=== PATIENT | female | born 1935 | race Caucasian/White ===

== ENCOUNTER 2017-07-08 07:21 | Day surgery (SDC) | payer MEDICARE ==
[~2017-07-08 07:21] MED LIST: Bupivacaine 0.5% 50 ML MDV ONE; Lidocaine 1% with EPINEPHrine 1:100,000 50 ML MDV ONE; Midazolam 1 MG/ML 2 ML SDV ONE; Propofol 200 MG/20 ML SDV ONE; fentaNYL 100 MCG/2 ML SDV ONE
[2017-07-08] MEDS ORDERED: Dextrose 5%-Lactated Ringers 1,000 ML IV SCH (07:30)
[2017-07-08] MEDS ORDERED: ceFAZolin 1 GM in Premix Bag 1 BAG IV ONE (08:15)
[2017-07-08 11:07] VITALS: BP 146/77
--- NOTE | 2017-07-11 08:44 | OR ---
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 OPERATIVE PROCEDURE: Excisional biopsy of the left breast ([id number]). ANESTHESIA: Local plus IV sedation. INDICATION FOR PROCEDURE: This 81-year-old female is presenting with a palpable mass in the medial aspect of the left breast. Clinically, this is quite suspicious for being a malignancy. She had mammograms and other radiologic workup, which showed this lesion, but no additional abnormalities. Clinically, the mass appeared to be fairly close to the pectoral fascia and may in fact be fixed. The plan will be to proceed with an excisional biopsy. Potential risks including bleeding, infection, and likely need for additional treatment if malignancy is confirmed were all reviewed with the patient, and she wishes to proceed. DETAILS OF PROCEDURE: The patient was taken to the operating room and placed in a supine position. IV sedation was administered, after which the left breast and surrounding areas were prepped and draped. The area over the palpable mass was then anesthetized with 1% lidocaine mixed with Marcaine. A transversely-oriented incision was made and carried down through the skin and subcutaneous tissue. The lesion was then dissected free from the surrounding soft tissues. This appeared to be either fixed or very close to being , but not likely penetrating through it. This would indicate a need for likely excision of that area as well as some of the underlying musculature in that area at the time of a re-excision, such as mastectomy. At any rate, the mass measured around 2 to 2.5 cm. It was quite highly suggestive of a malignancy and it was sent for pathologic review. The deeper soft tissues were then approximated with some 3-0 and 4-0 Vicryl stitch, and the skin with a 4-0 Vicryl subcuticular stitch. Dressing was applied. We will see the patient back this Friday to discuss treatment options. Seun Paul MD /[id number]
== END 2017-07-08 11:35 | disposition home or self-care (01) ==
LOC: JP.SDS 07:21
PROVIDERS: ATTEND Surgery
DX: C50.812 Malignant neoplasm of overlapping sites of left female breast (principal); Z17.1 Estrogen receptor negative status [ER-]; I12.9 Hypertensive chronic kidney disease with stage 1 through stage 4 chronic kidney disease, or unspecified chronic kidney disease; E11.22 Type 2 diabetes mellitus with diabetic chronic kidney disease; N18.9 Chronic kidney disease, unspecified
CPT/HCPCS: 19120; 82962; J0690; J2250; J2704; J3010; J7042; 88305; 88341; 88342; 88360

== ENCOUNTER 2017-07-14 09:18 | Inpatient (IN) | payer MEDICARE ==
[~2017-07-14 09:18] MED LIST changes: -Bupivacaine 0.5% 50 ML MDV ONE; +HYDROmorphone/Normal Saline 15 MG/30 ML PCA IV PRN; -Lidocaine 1% with EPINEPHrine 1:100,000 50 ML MDV ONE; -Midazolam 1 MG/ML 2 ML SDV ONE; -Propofol 200 MG/20 ML SDV ONE; -fentaNYL 100 MCG/2 ML SDV ONE
[2017-07-14] MEDS ORDERED: Isosulfan Blue 5 ML SDV ONE (10:05)
[2017-07-14] MEDS: amLODIPine 10 MG Tab PO SCH ×2 (10:14→21:20)
[2017-07-14] MEDS ORDERED: ceFAZolin 1 GM in Premix Bag 1 BAG IV ONE (10:15)
[2017-07-14] MEDS: Dextrose 5%-Lactated Ringers 1,000 ML IV SCH ×2 (10:15→20:37)
[2017-07-14] MEDS ORDERED: fentaNYL 100 MCG/2 ML SDV ONE (10:48)
[2017-07-14] MEDS ORDERED: Propofol 200 MG/20 ML SDV ONE (10:48)
[2017-07-14] MEDS ORDERED: Midazolam 1 MG/ML 2 ML SDV ONE (10:48)
[2017-07-14] MEDS ORDERED: Ondansetron 4 MG/2 ML SDV ONE (10:50)
[2017-07-14] MEDS ORDERED: Rocuronium 50 MG/5 ML Vial ONE (10:50)
[2017-07-14] MEDS ORDERED: Dexamethasone 4 MG/ML SDV ONE (10:50)
[2017-07-14] MEDS ORDERED: Neostigmine Methylsulfate 1 MG/ML 5 ML Syringe ONE (10:50)
[2017-07-14] MEDS ORDERED: Glycopyrrolate 0.2 MG/ML 5 ML MDV ONE (10:50)
[2017-07-14] MEDS ORDERED: Succinylcholine 200 MG/10 ML MDV ONE (10:50)
[2017-07-14] MEDS ORDERED: fentaNYL 250 MCG/5 ML SDV ONE (10:54)
--- NOTE | 2017-07-14 11:00 | PCM.HP ---
H&P History of Present Illness - General Date of Service: 07/14/17 Admit Problem/Dx: Left Mastectomy Modified Radical with Sentinal Lymph Node Biopsies and Frozen Section Source of Information: Patient History Limitations: Reports: No Limitations Right Leg Pain Score (Numeric/FACES): 6 - Related Data Allergies/Adverse Reactions: Allergies Allergy/AdvReac Type Severity Reaction Status Date / Time No Known Allergies Allergy Verified 07/14/17 09:46 Home Medications: Home Meds Calcium Carbonate/Vitamin D3 [Calcium 600 + Vit D Tablet] 1 each PO DAILY [History] Insulin Glarg,Human.Rec.Analog [LantUS Solostar] 20 unit SQ BID 10/11/16 [ History] Lansoprazole [Prevacid] 30 mg PO DAILY 10/11/16 [History] Lovastatin 40 mg PO DAILY 10/11/16 [History] Metoprolol Tartrate 100 mg PO BID 10/11/16 [History] Multivitamin with Minerals [Multivitamins with Minerals] 1 each PO DAILY [History] amLODIPine Besylate [Amlodipine Besylate] 10 mg PO DAILY 10/11/16 [History] Insulin Aspart [Novolog] 5 - 10 unit SQ TIDAC 07/04/17 [History] Losartan Potassium 25 mg PO DAILY 07/04/17 [History] Docusate Sodium [Colace] 50 mg PO DAILY 07/08/17 [History] Psyllium with Sucrose [Metamucil] 1 each PO DAILY PRN 07/11/17 [History] Past Medical History HEENT History: Reports: Impaired Vision Cardiovascular History: Reports: High Cholesterol, Hypertension Gastrointestinal History: Reports: Colon Polyp, GERD Genitourinary History: Reports: Chronic Renal Insuffiency, Other (See Below) Other Genitourinary History: frequency Musculoskeletal History: Reports: None Endocrine/Metabolic History: Reports: Diabetes, Type II, IDDM Hematologic History: Reports: Blood Transfusion(s) Oncologic (Cancer) History: Reports: Other (See Below) Other Oncologic History: skin cancer on leg Dermatologic History: Reports: Other (See Below) Other Dermatologic History: skin cancer - Infectious Disease History Infectious Disease History: Reports: Chicken Pox, Measles, Mumps - Past Surgical History HEENT Surgical History: Reports: None Cardiovascular Surgical History: Reports: Coronary Artery Stent GI Surgical History: Reports: Appendectomy, Colonoscopy Female Surgical History: Reports: None Endocrine Surgical History: Reports: None Musculoskeletal Surgical History: Reports: Knee Replacement Dermatological Surgical History: Reports: Skin Biopsy Social & Family History - Family History Family Medical History: Noncontributory - Tobacco Use Smoking Status *Q: Never Smoker Second Hand Smoke Exposure: No - Caffeine Use Caffeine Use: Reports: Coffee, Tea - Recreational Drug Use Recreational Drug Use: No H&P Review of Systems - Review of Systems: Review Of Systems: ROS reveals no pertinent complaints other than HPI. Exam - Exam Exam: See Below - Vital Signs Vital Signs: Last Vital Signs Temp 97.9 F 07/14/17 10:07 Pulse 57 L 07/14/17 10:07 Resp 18 07/14/17 10:07 BP 149/73 H 07/14/17 10:14 Pulse Ox 97 07/14/17 10:07 Weight: 135 lb - Exam Quality Assessment: DVT Prophylaxis General: Alert, Oriented, Cooperative HEENT: PERRLA, Conjunctiva Clear Neck: Supple, Trachea Midline Lungs: Clear to Auscultation, Normal Respiratory Effort Cardiovascular: Regular Rate, Regular Rhythm GI/Abdominal Exam: Soft, Non-Tender (Female) Exam: Deferred Rectal (Female) Exam: Deferred Back Exam: Normal Inspection, Full Range of Motion Extremities: Normal Inspection, No Pedal Edema Skin: Warm, Dry, Intact Neurological: Cranial Nerves Intact Neuro Extensive - Mental Status: Alert, Oriented x3, Normal Mood/Affect Neuro Extensive - Motor, Sensory, Reflexes: CN II-XII Intact, Normal Gait, Normal Reflexes Psychiatric: Alert, Normal Affect, Normal Mood - Patient Data Lab Results Last 24 hrs: Laboratory Results - last 24 hr 07/14/17 07/14/17 Range/Units 09:33 09:33 WBC 8.7 (4.5-11.0) K/uL RBC 4.86 (3.30-5.50) M/uL Hgb 14.3 (12.0-15.0) g/dL Hct 43.9 (36.0-48.0) % MCV 90 (80-98) fL MCH 29 (27-31) pg MCHC 33 (32-36) % Plt Count 286 (150-400) K/uL Sodium 138 L (140-148) mmol/L Potassium 4.6 (3.6-5.2) mmol/L Chloride 102 (100-108) mmol/L Carbon Dioxide 28 (21-32) mmol/L Anion Gap 12.6 (5.0-14.0) mmol/L BUN 33 H (7-18) mg/dL Creatinine 1.4 H (0.6-1.0) mg/dL Est Cr Clr Drug Dosing 25.77 mL/min Estimated GFR (MDRD) 36 L (>60) Glucose 198 H (74-106) mg/dL Calcium 9.9 (8.5-10.1) mg/dL Phosphorus 3.2 (2.5-4.9) mg/dL Magnesium 2.0 (1.8-2.4) mg/dL Total Bilirubin 0.5 (0.2-1.0) mg/dL AST 19 (15-37) U/L ALT 32 (12-78) U/L Alkaline Phosphatase 88 (46-116) U/L NT-Pro-B Natriuret Pep 459 H (5-450) pg/mL Total Protein 8.2 (6.4-8.2) g/dL Albumin 3.6 (3.4-5.0) g/dL Globulin 4.6 H (2.3-3.5) g/dL Albumin/Globulin Ratio 0.8 L (1.2-2.2) Result Diagrams: 07/14/17 09:33 07/14/17 09:33 - Problem List (1) Left breast mass SNOMED Code(s): 83478908 ICD Code: N63.20 - UNSPECIFIED LUMP IN THE LEFT BREAST, UNSPECIFIED QUADRANT Status: Acute Current Visit: Yes Problem List Initiated/Reviewed/Updated: Yes Orders Last 24hrs: Active Orders 24 hr Category Date Time Status CA 27.29 Routine Lab 07/14/17 09:33 Received Dextrose 5%-Lactated Ringers 1,000 ml Med 07/14/17 10:00 Active IV ASDIRECTED HYDROmorphone/Normal Saline [Dilaudid [employer]HE[employer] 15 MG in NS Med 07/14/17 07:36 Active 30 ML] See Protocol IV ASDIRECTED PRN amLODIPine [Norvasc] Med 07/14/17 10:30 Active 10 mg PO BEDTIME SCD [Sequential Compression Device] [OM.PC] Routine Oth 07/14/17 09:30 Ordered Medication Orders Amlodipine Besylate (Norvasc) 10 mg PO BEDTIME [facility] Last Admin: 07/14/17 10:14 Dose: 10 mg Hydromorphone HCl (Dilaudid Medical Physics Teacher 15 Mg In Ns 30 Ml) 0 mg IV ASDIRECTED PRN; Protocol PRN Reason: Pain Dextrose/Lactated Ringer's (Dextrose 5%-Lactated Ringers) 1,000 mls @ 100 mls/ hr IV ASDIRECTED [facility] Last Admin: 07/14/17 10:15 Dose: 100 mls/hr Assessment/Plan Comment:: Left Breast Lump Plan: May proceed with Surgical Procedure. Patient cleared for General Anesthesia Desirae Hammond 07/14/2017
[2017-07-14] MEDS ORDERED: Insulin Aspart 100 Units/ML 3 ML Pen SUBCUT ONE (15:15)
[2017-07-14] MEDS ORDERED: Naloxone 0.4 MG/ML SDV IV PRN (15:41)
[2017-07-14] MEDS ORDERED: Glucose Gel 15 GM in 37.5 GM Tube PO PRN (15:45)
[2017-07-14] MEDS ORDERED: Glucagon,Human Recombinant 1 MG Vial IM PRN (15:45)
[2017-07-14] MEDS ORDERED: Insulin Aspart 100 Units/ML 3 ML Pen SUBCUT PRN (15:45)
[2017-07-14] MEDS ORDERED: 50% Dextrose in Water 50 ML Syringe IVPUSH PRN (15:45)
[2017-07-14] MEDS: Ondansetron 4 MG/2 ML SDV IVPUSH PRN ×2 (15:57→21:11)
[2017-07-14] MEDS: ceFAZolin 1 GM in Premix Bag 1 BAG IV SCH (20:39)
[2017-07-14] MEDS: Metoprolol Tartrate 50 MG Tab PO SCH (21:15)
[2017-07-14] MEDS: Mupirocin Oint 22 GM Tube TOP SCH (21:15)
[2017-07-14] MEDS ORDERED: amLODIPine 5 MG Tab ONE (21:22)
[2017-07-14] MEDS: Insulin Aspart 100 Units/ML 3 ML Pen SUBCUT PRN (22:20)
[2017-07-14] MEDS: Insulin Detemir 100 Units/ML 3 ML Pen SUBCUT SCH (22:20)
[2017-07-15] MEDS: Ondansetron 4 MG/2 ML SDV IVPUSH PRN ×2 (01:43→08:43)
[2017-07-15] MEDS: ceFAZolin 1 GM in Premix Bag 1 BAG IV SCH ×2 (03:28→11:13)
[2017-07-15] MEDS ORDERED: Insulin Aspart 100 Units/ML 3 ML Pen SUBCUT ONE (04:28)
[2017-07-15] MEDS ORDERED: Lactated Ringers 1,000 ML IV SCH ×2 (04:30→07:45)
--- NOTE | 2017-07-15 07:20 | PCM.PN ---
- General Info Date of Service: 07/15/17 Admission Dx/Problem (Free Text): Left Mastectomy Subjective Update: Patient is POD #1. Overnight she was experiencing extreme nausea that was not controlled with Odansetron. This am she was experiencing less nausea although state that she believes the nausea is being provoked from the pain medication. Functional Status: Reports: Pain Controlled - Review of Systems General: Reports: No Symptoms HEENT: Reports: No Symptoms Pulmonary: Reports: No Symptoms Cardiovascular: Reports: No Symptoms Gastrointestinal: Reports: No Symptoms Genitourinary: Reports: No Symptoms Musculoskeletal: Reports: No Symptoms Skin: Reports: No Symptoms Neurological: Reports: No Symptoms Psychiatric: Reports: No Symptoms (Review of systems is negative for pertanient negatives and positives) - Patient Data Vitals - Most Recent: Last Vital Signs Temp 96.9 F 07/15/17 01:30 Pulse 81 07/15/17 01:30 Resp 16 07/15/17 01:30 BP 157/58 H 07/15/17 01:30 Pulse Ox 91 L 07/15/17 01:30 Weight - Most Recent: 135 lb I&O - Last 24 Hours: Intake & Output 07/14/17 07/15/17 07/15/17 22:59 06:59 14:59 Intake Total 50 1315 Output Total 400 Balance 50 915 Lab Results Last 24 Hours: Laboratory Results - last 24 hr 07/14/17 07/14/17 07/14/17 Range/Units 09:33 09:33 09:33 WBC 8.7 (4.5-11.0) K/uL RBC 4.86 (3.30-5.50) M/uL Hgb 14.3 (12.0-15.0) g/dL Hct 43.9 (36.0-48.0) % MCV 90 (80-98) fL MCH 29 (27-31) pg MCHC 33 (32-36) % Plt Count 286 (150-400) K/uL Sodium 138 L (140-148) mmol/L Potassium 4.6 (3.6-5.2) mmol/L Chloride 102 (100-108) mmol/L Carbon Dioxide 28 (21-32) mmol/L Anion Gap 12.6 (5.0-14.0) mmol/L BUN 33 H (7-18) mg/dL Creatinine 1.4 H (0.6-1.0) mg/dL Est Cr Clr Drug Dosing 25.77 mL/min Estimated GFR (MDRD) 36 L (>60) Glucose 198 H (74-106) mg/dL Calcium 9.9 (8.5-10.1) mg/dL Phosphorus 3.2 (2.5-4.9) mg/dL Magnesium 2.0 (1.8-2.4) mg/dL Total Bilirubin 0.5 (0.2-1.0) mg/dL AST 19 (15-37) U/L ALT 32 (12-78) U/L Alkaline Phosphatase 88 (46-116) U/L NT-Pro-B Natriuret Pep 459 H (5-450) pg/mL Total Protein 8.2 (6.4-8.2) g/dL Albumin 3.6 (3.4-5.0) g/dL Globulin 4.6 H (2.3-3.5) g/dL Albumin/Globulin Ratio 0.8 L (1.2-2.2) CA 27-29 36.3 (0.0-38.6) U/mL Med Orders - Current: Current Medications Amlodipine Besylate (Norvasc) 10 mg PO BEDTIME [facility] Last Admin: 07/14/17 21:20 Dose: 10 mg Dextrose (Glutose 15) 15 gm PO ASDIRECTED PRN PRN Reason: HYPOGLYCEMIA Dextrose/Water (Dextrose 50% In Water) 50 ml IVPUSH ASDIRECTED PRN PRN Reason: HYPOGLYCEMIA Glucagon (Glucagen) 1 mg IM ASDIRECTED PRN PRN Reason: HYPOGLYCEMIA Hydromorphone HCl (Dilaudid Home Health Care Physician 15 Mg In Ns 30 Ml) 0 mg IV ASDIRECTED PRN; Protocol PRN Reason: Pain Last Admin: 07/14/17 12:27 Dose: 0.2 mg Dextrose/Lactated Ringer's (Dextrose 5%-Lactated Ringers) 1,000 mls @ 100 mls/ hr IV ASDIRECTED [facility] Last Admin: 07/14/17 20:37 Dose: 100 mls/hr Cefazolin Sodium/Dextrose 1 gm (/ Premix) 50 mls @ 100 mls/hr IV Q8H [facility] Stop: 07/15/17 12:29 Last Admin: 07/15/17 03:28 Dose: 100 mls/hr Lactated Ringer's (Ringers, Lactated) 1,000 mls @ 100 mls/hr IV ASDIRECTED [facility] Last Admin: 07/15/17 04:44 Dose: 100 mls/hr Insulin Aspart (Novolog) 0 unit SUBCUT ASDIRECTED PRN; Protocol PRN Reason: MEDIUM CORRECTIONAL DOSE Last Admin: 07/14/17 22:20 Dose: 8 units Insulin Detemir (Levemir) 20 unit SUBCUT BID@0800,2000 [facility] Last Admin: 07/14/17 22:20 Dose: 35 units Losartan Potassium (Cozaar) 25 mg PO DAILY [facility] Lovastatin (Mevacor) 40 mg PO DAILY [facility] Metoprolol Tartrate (Lopressor) 100 mg PO BID [facility] Last Admin: 07/14/17 21:15 Dose: 100 mg Mupirocin (Bactroban Oint) 1 gm TOP BID [facility] Last Admin: 07/14/17 21:15 Dose: 1 dose Naloxone HCl (Narcan) 0.1 mg IV ASDIRECTED PRN PRN Reason: decreased respiratory rate Ondansetron HCl (Zofran) 4 mg IVPUSH Q4H PRN PRN Reason: Nausea Last Admin: 07/15/17 01:43 Dose: 4 mg Pantoprazole Sodium (Protonix) 40 mg PO ACBREAKFAST [facility] Discontinued Medications Amlodipine Besylate (Norvasc) Confirm Administered Dose 10 mg .ROUTE .STK-MED ONE Stop: 07/14/17 21:23 Last Admin: 07/15/17 00:25 Dose: Not Given Dexamethasone (Dexamethasone) Confirm Administered Dose 4 mg .ROUTE .STK-MED ONE Stop: 07/14/17 10:51 Fentanyl (Sublimaze) Confirm Administered Dose 100 mcg .ROUTE .STK-MED ONE Stop: 07/14/17 10:49 Fentanyl (Sublimaze) Confirm Administered Dose 250 mcg .ROUTE .STK-MED ONE Stop: 07/14/17 10:55 Glycopyrrolate (Robinul) Confirm Administered Dose 1 mg .ROUTE .STK-MED ONE Stop: 07/14/17 10:51 Cefazolin Sodium/Dextrose 1 gm (/ Premix) 50 mls @ 100 mls/hr IV ONETIME ONE Stop: 07/14/17 10:44 Last Admin: 07/14/17 13:15 Dose: 100 mls/hr Insulin Aspart (Novolog) 3 unit SUBCUT ONETIME ONE Stop: 07/14/17 15:16 Last Admin: 07/14/17 15:07 Dose: 3 units Insulin Aspart (Novolog) 20 unit SUBCUT ONETIME ONE Stop: 07/15/17 04:29 Last Admin: 07/15/17 04:42 Dose: 20 units Isosulfan Blue (Lymphazurin 1%) Confirm Administered Dose 5 ml .ROUTE .STK-MED ONE Stop: 07/14/17 10:06 Last Admin: 07/14/17 13:30 Dose: 5 ml Midazolam HCl (Versed 1 Mg/Ml) Confirm Administered Dose 2 mg .ROUTE .STK-MED ONE Stop: 07/14/17 10:49 Neostigmine Methylsulfate (Neostigmine) Confirm Administered Dose 5 mg .ROUTE .STK-MED ONE Stop: 07/14/17 10:51 Ondansetron HCl (Zofran) Confirm Administered Dose 4 mg .ROUTE .STK-MED ONE Stop: 07/14/17 10:51 Propofol (Diprivan 20 Ml) Confirm Administered Dose 200 mg .ROUTE .STK-MED ONE Stop: 07/14/17 10:49 Rocuronium Ramsay (Zemuron) Confirm Administered Dose 50 mg .ROUTE .STK-MED ONE Stop: 07/14/17 10:51 Succinylcholine Chloride (Quelicin) Confirm Administered Dose 200 mg .ROUTE .STK -MED ONE Stop: 07/14/17 10:51 - Exam General: Alert, Oriented, Cooperative, No Acute Distress HEENT: Pupils Equal, Mucous Membr. Moist/[place] Neck: Supple Lungs: Normal Respiratory Effort Cardiovascular: Regular Rate, Regular Rhythm Extremities: Normal Inspection, Normal Range of Motion Skin: Warm, Dry, Intact Neurological: No New Focal Deficit Psy/Mental Status: Alert, Normal Affect, Normal Mood - Problem List Review Problem List Initiated/Reviewed/Updated: Yes - Assessment Assessment:: Status post left breast mastectomy modified radical with sentinel lymph node biopsies and frozen section - Plan Plan:: 1. Advance to regular diet 2. D/C Dilaudad 3. Start Tylenol prn for pain, if still experiencing pain start tramadol 4. Start Reglan for nausea prn if nausea uncontrolled with Odensetron 5. Reevaluate prn or in am
[2017-07-15] MEDS: Pantoprazole 40 MG Tab.CR PO SCH (07:38)
[2017-07-15] MEDS ORDERED: Metoclopramide 10 MG/2 ML SDV IVPUSH PRN (07:38)
[2017-07-15] MEDS: Insulin Detemir 100 Units/ML 3 ML Pen SUBCUT SCH ×2 (08:38→21:55)
[2017-07-15] MEDS: traMADol 50 MG Tab PO PRN ×2 (08:50→14:34)
[2017-07-15] MEDS: Acetaminophen 325 MG Tab PO PRN ×3 (08:51→18:49)
[2017-07-15] MEDS: Mupirocin Oint 22 GM Tube TOP SCH ×2 (09:37→21:53)
[2017-07-15] MEDS: Metoprolol Tartrate 50 MG Tab PO SCH ×2 (09:38→21:59)
[2017-07-15] MEDS: Docusate Sodium 100 MG Cap PO SCH ×2 (09:38→21:54)
[2017-07-15] MEDS: Losartan 50 MG Tab PO SCH (09:39)
[2017-07-15] MEDS: Insulin Aspart 100 Units/ML 3 ML Pen SUBCUT PRN ×3 (12:58→21:54)
[2017-07-15] MEDS ORDERED: Calcium Carbonate 500 MG Tab.Chew PO PRN (21:42)
[2017-07-15] MEDS: amLODIPine 10 MG Tab PO SCH (21:58)
[2017-07-16] MEDS: traMADol 50 MG Tab PO PRN (07:37)
[2017-07-16] MEDS: Pantoprazole 40 MG Tab.CR PO SCH (07:37)
[2017-07-16] MEDS: Acetaminophen 325 MG Tab PO PRN (07:38)
[2017-07-16] MEDS: Insulin Detemir 100 Units/ML 3 ML Pen SUBCUT SCH (07:39)
[2017-07-16 07:44] VITALS: BP 157/51
--- NOTE | 2017-07-16 08:12 | PCM.DCSUM1 ---
Discharge Summary - Hospital Course Brief History: Philipp is a 81 year old white, well nourished, well groomed female. She has a history of HTN, chronic renal insufficiency and Type 2 DM. - Discharge Data Discharge Date: 07/16/17 Discharge Disposition: Home, Self-Care 01 Condition: Good - Patient Summary/Data Operative Procedure(s) Performed: Left modified radical masectomy and setinal lymph node biopsy. Complications: No Complications. Consults: Consultations 07/14/17 15:38 Respiratory Care Assess and Treatment [CONS] Routine Comment: Physician Instructions: 07/16/17 08:09 Consult to Case Management [CONS] Routine Comment: Physician Instructions: Home Health Care Quantity: 07/16/17 09:00 PT Evaluation and Treatment [CONS] Routine Please Evaluate and Treat. PT Reason for Consult: Other (Type Response) Pending Discharge: Yes Discharge Disposition: Home w Home Health Special Instructions: Post mastectomy This query below is only for informational purposes and is not editable. Admission Diagnosis/Problem: Carcinoma of breast Hospital Course: Patient had a left breast mass that was removed and biopsied. The mass came back as cancerous and a left breast modified radical mastectomy on 07/14/2017. On POD #1 she was experiencing significant nausea and had difficulty keep down liquids. In the morning on POD #1 her pain medication was stopped and she was placed on Tylenol and Tramadol prn to try and help control the nausea. She was also changed to a full diet to try and improve the nausea. POD #2 the wound was checked and the patient was up and ambulating. We discussed possible home health care to help with showering and wound maintenance. Nursing staff helped to teach both the patient and her how to clean, drain, measure and record drain output. - Patient Instructions Diet: Heart Healthy Diet, Drink 8-10+ Glasses/Day Activity: As Tolerated, No Lifting Over 10 Pounds (for 6 weeks ) Showering/Bathing: May Shower Wound/Incision Care: Keep Operative Site/Wound Site Clean and Dry (Clean, Drain , Measure and Record daily. ) Notify Provider of: Fever, Increased Pain, Swelling and Redness, Nausea and/or Vomiting Other/Special Instructions: Use incentive inspirometer 10 times every hour while awake for 1 week while at home. - Discharge Plan Prescriptions/Med Rec: traMADol [Ultram] 50 mg PO Q6H PRN #30 tablet PRN Reason: PAIN Home Medications: Home Meds Calcium Carbonate/Vitamin D3 [Calcium 600 + Vit D Tablet] 1 each PO DAILY [History] Insulin Glarg,Human.Rec.Analog [Lantus Solostar] 20 unit SQ BID 10/11/16 [ History] Lansoprazole [Prevacid] 30 mg PO DAILY 10/11/16 [History] Lovastatin 40 mg PO DAILY 10/11/16 [History] Metoprolol Tartrate 100 mg PO BID 10/11/16 [History] Multivitamin with Minerals [Multivitamins with Minerals] 1 each PO DAILY [History] amLODIPine Besylate [Amlodipine Besylate] 10 mg PO DAILY 10/11/16 [History] Insulin Aspart [Novolog Flexpen] 5 - 10 unit SQ TIDAC 07/04/17 [History] Losartan Potassium 25 mg PO DAILY 07/04/17 [History] Docusate Sodium [Colace] 50 mg PO DAILY 07/08/17 [History] Psyllium with Sucrose [Metamucil] 1 each PO DAILY PRN 07/11/17 [History] Acetaminophen [Tylenol] 650 mg PO Q4H PRN tablet 07/16/17 [Rx] Mupirocin Oint [Bactroban Oint] 1 gm TOP BID tube 07/16/17 [Rx] traMADol [Ultram] 50 mg PO Q6H PRN #30 tablet 07/16/17 [Rx] Referrals: Seun Paul MD [Physician] - 07/23/17 9:00 am - Discharge Summary/Plan Comment DC Time >30 min.: Yes Discharge Summary/Plan Comment: Plan to discharge home in the care of her and possible at home care. Follow up with Medical Oncology Friday of next week 07/23/2017 - General Info Date of Service: 07/16/17 Admission Dx/Problem (Free Text: Left Breast Modified Radical Mastectomy with [place] lymph node biopsy Subjective Update: Patient is POD #2. Her nausea has improved since the discontinuation of the pain medication and the starting of the Tylenol and Tramadol prn. Her pain is controlled and we will be planning on discharging her today. She is being discharged home in the care of her and is possibly interested in at home care for the next few weeks. She stated that her insurance will most likely cover this and this is something she would like to look into for extra help. Functional Status: Reports: Pain Controlled, Tolerating Diet, Ambulating, Urinating, Incentive Spirometry (Should be using 10 times every hour while awake throughout the day and night.) - Review of Systems General: Reports: No Symptoms HEENT: Reports: No Symptoms Pulmonary: Reports: No Symptoms Cardiovascular: Reports: No Symptoms Gastrointestinal: Reports: No Symptoms Genitourinary: Reports: No Symptoms Musculoskeletal: Reports: No Symptoms Skin: Reports: No Symptoms Neurological: Reports: No Symptoms Psychiatric: Reports: No Symptoms Systems Review Comment: Remainder of ROS is negative for any pertinent positives or negatives. - Patient Data Vitals - Most Recent: Last Vital Signs Temp 97.5 F 07/16/17 07:41 Pulse 60 07/16/17 07:41 Resp 16 07/16/17 07:41 BP 157/51 H 07/16/17 07:41 Pulse Ox 90 L 07/16/17 07:49 Weight - Most Recent: 135 lb I&O - Last 24 hours: Intake & Output 07/15/17 07/16/17 07/16/17 22:59 06:59 14:59 Intake Total 1314 Output Total 213 Balance 1101 Med Orders - Current: Current Medications Acetaminophen (Tylenol) 650 mg PO Q4H PRN PRN Reason: PAIN Last Admin: 07/16/17 07:38 Dose: 650 mg Amlodipine Besylate (Norvasc) 10 mg PO BEDTIME [facility] Last Admin: 07/15/17 21:58 Dose: 10 mg Calcium Carbonate/Glycine (Tums) 1,000 mg PO Q2H PRN PRN Reason: Indigestion Last Admin: 07/15/17 22:06 Dose: 1,000 mg Dextrose (Glutose 15) 15 gm PO ASDIRECTED PRN PRN Reason: HYPOGLYCEMIA Dextrose/Water (Dextrose 50% In Water) 50 ml IVPUSH ASDIRECTED PRN PRN Reason: HYPOGLYCEMIA Docusate Sodium (Colace) 100 mg PO BID [facility] Last Admin: 07/15/17 21:54 Dose: 100 mg Glucagon (Glucagen) 1 mg IM ASDIRECTED PRN PRN Reason: HYPOGLYCEMIA Lactated Ringer's (Ringers, Lactated) 1,000 mls @ 80 mls/hr IV ASDIRECTED [facility] Last Admin: 07/15/17 16:50 Dose: 80 mls/hr Insulin Aspart (Novolog) 0 unit SUBCUT ASDIRECTED PRN; Protocol PRN Reason: MEDIUM CORRECTIONAL DOSE Last Admin: 07/15/17 21:54 Dose: 3 units Insulin Detemir (Levemir) 20 unit SUBCUT BID@0800,2000 [facility] Last Admin: 07/16/17 07:39 Dose: Not Given Losartan Potassium (Cozaar) 25 mg PO DAILY [facility] Last Admin: 07/15/17 09:39 Dose: 25 mg Lovastatin (Mevacor) 40 mg PO DAILY [facility] Last Admin: 07/15/17 09:39 Dose: 40 mg Metoclopramide HCl (Reglan) 10 mg IVPUSH Q6H PRN PRN Reason: NAUSEA Last Admin: 07/15/17 11:06 Dose: 10 mg Metoprolol Tartrate (Lopressor) 100 mg PO BID [facility] Last Admin: 07/15/17 21:59 Dose: 100 mg Mupirocin (Bactroban Oint) 1 gm TOP BID [facility] Last Admin: 07/15/17 21:53 Dose: 1 applic Naloxone HCl (Narcan) 0.1 mg IV ASDIRECTED PRN PRN Reason: decreased respiratory rate Ondansetron HCl (Zofran) 4 mg IVPUSH Q4H PRN PRN Reason: Nausea Last Admin: 07/15/17 08:43 Dose: 4 mg Pantoprazole Sodium (Protonix) 40 mg PO ACBREAKFAST [facility] Last Admin: 07/16/17 07:37 Dose: 40 mg Tramadol HCl (Ultram) 50 mg PO Q6H PRN PRN Reason: PAIN Last Admin: 07/16/17 07:37 Dose: 50 mg Discontinued Medications Amlodipine Besylate (Norvasc) Confirm Administered Dose 10 mg .ROUTE .STK-MED ONE Stop: 07/14/17 21:23 Last Admin: 07/15/17 00:25 Dose: Not Given Dexamethasone (Dexamethasone) Confirm Administered Dose 4 mg .ROUTE .STK-MED ONE Stop: 07/14/17 10:51 Fentanyl (Sublimaze) Confirm Administered Dose 100 mcg .ROUTE .STK-MED ONE Stop: 07/14/17 10:49 Fentanyl (Sublimaze) Confirm Administered Dose 250 mcg .ROUTE .STK-MED ONE Stop: 07/14/17 10:55 Glycopyrrolate (Robinul) Confirm Administered Dose 1 mg .ROUTE .STK-MED ONE Stop: 07/14/17 10:51 Hydromorphone HCl (Dilaudid [employer] 15 Mg In Ns 30 Ml) 0 mg IV ASDIRECTED PRN; Protocol PRN Reason: Pain Last Admin: 07/14/17 12:27 Dose: 0.2 mg Cefazolin Sodium/Dextrose 1 gm (/ Premix) 50 mls @ 100 mls/hr IV ONETIME ONE Stop: 07/14/17 10:44 Last Admin: 07/14/17 13:15 Dose: 100 mls/hr Dextrose/Lactated Ringer's (Dextrose 5%-Lactated Ringers) 1,000 mls @ 100 mls/ hr IV ASDIRECTED [facility] Last Admin: 07/14/17 20:37 Dose: 100 mls/hr Cefazolin Sodium/Dextrose 1 gm (/ Premix) 50 mls @ 100 mls/hr IV Q8H NAA Stop: 07/15/17 12:29 Last Admin: 07/15/17 11:13 Dose: 100 mls/hr Lactated Ringer's (Ringers, Lactated) 1,000 mls @ 100 mls/hr IV ASDIRECTED [facility] Last Admin: 07/15/17 04:44 Dose: 100 mls/hr Insulin Aspart (Novolog) 3 unit SUBCUT ONETIME ONE Stop: 07/14/17 15:16 Last Admin: 07/14/17 15:07 Dose: 3 units Insulin Aspart (Novolog) 20 unit SUBCUT ONETIME ONE Stop: 07/15/17 04:29 Last Admin: 07/15/17 04:42 Dose: 20 units Isosulfan Blue (Lymphazurin 1%) Confirm Administered Dose 5 ml .ROUTE .STK-MED ONE Stop: 07/14/17 10:06 Last Admin: 07/14/17 13:30 Dose: 5 ml Midazolam HCl (Versed 1 Mg/Ml) Confirm Administered Dose 2 mg .ROUTE .STK-MED ONE Stop: 07/14/17 10:49 Neostigmine Methylsulfate (Neostigmine) Confirm Administered Dose 5 mg .ROUTE .STK-MED ONE Stop: 07/14/17 10:51 Ondansetron HCl (Zofran) Confirm Administered Dose 4 mg .ROUTE .STK-MED ONE Stop: 07/14/17 10:51 Propofol (Diprivan 20 Ml) Confirm Administered Dose 200 mg .ROUTE .STK-MED ONE Stop: 07/14/17 10:49 Rocuronium [place] (Zemuron) Confirm Administered Dose 50 mg .ROUTE .STK-MED ONE Stop: 07/14/17 10:51 Succinylcholine Chloride (Quelicin) Confirm Administered Dose 200 mg .ROUTE .STK -MED ONE Stop: 07/14/17 10:51 - Exam General: Reports: Alert, Oriented, Cooperative, No Acute Distress HEENT: Reports: Pupils Equal, Mucous Membr. Moist/[place] Neck: Reports: Supple Lungs: Reports: Clear to Auscultation, Normal Respiratory Effort Cardiovascular: Reports: Regular Rate, Regular Rhythm Extremities: Normal Range of Motion Skin: Reports: Warm, Dry, Intact Wound/Incisions: Reports: Healing Well, Dressing Dry and Intact, Drainage ( serosanguanous ) Neurological: Reports: No New Focal Deficit, Normal Speech Psy/Mental Status: Reports: Alert, Normal Affect, Normal Mood
[2017-07-16] MEDS: Docusate Sodium 100 MG Cap PO SCH (08:20)
[2017-07-16] MEDS: Mupirocin Oint 22 GM Tube TOP SCH (08:20)
[2017-07-16] MEDS: Losartan 50 MG Tab PO SCH (08:21)
[2017-07-16] MEDS: Metoprolol Tartrate 50 MG Tab PO SCH (08:23)
--- NOTE | 2017-07-16 10:07 | PN ---
DATE OF SERVICE: 07/15/2017 The patient has been afebrile with stable vital signs. She had quite a bit of nausea overnight that appears to be resolving. It is hard to know what exactly is behind that, may be the Dilaudid, but also could be anesthetic agents and such. We will give her a regular diet today and then go with Tylenol and/or tramadol for pain orally. Her blood sugar has been fairly high, but I think it will come down today. We will switch her IV to plain LR to 80 mL an hour, and resume her 20 mg b.i.d. along with NovoLog coverage. Seun Paul MD /[id number]
--- NOTE | 2017-07-16 15:32 | OR ---
DATE OF PROCEDURE: 07/14/2017 PREOPERATIVE DIAGNOSIS: Carcinoma of left breast. POSTOPERATIVE DIAGNOSIS: Carcinoma of left breast. OPERATIVE PROCEDURES: 1. Left modified radical mastectomy with sentinel lymph node biopsy (30237). 2. Injection procedure for identification of sentinel lymph nodes (52141). ANESTHESIA: General. ASSISTANTS: 1. Desirae Betancourt PA-C. 2. DAVIS Diana. 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 After preoperative evaluation and discussion, she wished to proceed with a mastectomy with sentinel lymph node biopsy and full axillary dissection if the sentinel nodes were noted to contain metastatic tumor. Potential risks of the procedure including bleeding, infection, local, or distant tumor recurrence as well as possibility of cardiopulmonary, septic, or hemorrhagic complications leading to were discussed, and the patient wishes to proceed. DETAILS OF PROCEDURE: The patient was taken to the operating room and placed in a supine position. After general endotracheal anesthesia was induced, 3 mL of isosulfan blue dye were injected adjacent to the biopsy site in the subdermal space. Breast was then massaged generally and the left breast, axilla, and surrounding areas were prepped and draped. A transversely-oriented elliptical incision encompassing the nipple-areolar complex and widely away from the biopsy site was made and carried down through the skin and subcutaneous tissue. Subcutaneous flaps were then raised superiorly, inferiorly, laterally, and medially to the usual extent. The breast was then reflected off the chest wall. At the biopsy site, there was tumor more or less immediately adjacent to the pectoralis major fascia. Given this underlying the biopsy site the pectoralis major muscle was excised, but the remainder of the muscle away from that site was left in place and the fascia was then reflected off the chest wall to the remaining extent and delivered from the field. The lymphatics extending into the axilla were then traced out and a group of nodes was noted to contain the dye. These were excised using electrocautery. A single bleeding point was suture ligated with a 3-0 Vicryl stitch and the specimen delivered to the pathologist. The pathologist did not see any clearly evident metastatic disease. There was a tiny area of focus that was most likely just a but might continue micrometastasis, but given the findings, we decided not to proceed with any further axillary dissection. The incision was then irrigated with water and 2 Damien-Montoya drains were placed through stab wounds inferior to the main incision. Incision was then closed with some 3-0 Vicryl stitch deep and sherman for the skin. The drains affixed with some 3-0 Vicryl stitch as well. The patient was taken to the recovery room in satisfactory condition. There were no evident complications. Physician assistant quality manager, Desirae Betancourt, played an essential role in assisting in this case, helping to position the patient, retract structures as needed, as well as suturing and cutting sutures when indicated. Her presence improved patient's safety and decreased the operative time. Seun Paul MD /[id number]
== END 2017-07-16 10:05 | disposition home or self-care (01) | DRG 581 ==
LOC: JP.MS 09:18 → JP.SDS 09:18 → EDSTATUS 11:00 → JP.2SS 14:50
PROVIDERS: ADMIT Surgery; ATTEND Surgery
PROC: 0HTU0ZZ Resection of Left Breast, Open Approach (ICD-10-PCS; principal; 2017-07-14)
PROC: 07B60ZX Excision of Left Axillary Lymphatic, Open Approach, Diagnostic (ICD-10-PCS; 2017-07-14)
PROC: 0KBJ0ZZ Excision of Left Thorax Muscle, Open Approach (ICD-10-PCS; 2017-07-14)
DX: C50.912 Malignant neoplasm of unspecified site of left female breast (principal); Z17.1 Estrogen receptor negative status [ER-]; I12.9 Hypertensive chronic kidney disease with stage 1 through stage 4 chronic kidney disease, or unspecified chronic kidney disease; E11.22 Type 2 diabetes mellitus with diabetic chronic kidney disease; N18.9 Chronic kidney disease, unspecified; Z79.4 Long term (current) use of insulin; Z95.5 Presence of coronary angioplasty implant and graft; K21.9 Gastro-esophageal reflux disease without esophagitis; Z85.828 Personal history of other malignant neoplasm of skin; H54.7 Unspecified visual loss; Z96.659 Presence of unspecified artificial knee joint
CPT/HCPCS: 36415; 80053; 82962; 83735; 83880; 84100; 85027; 88307; 88331; 88332; 88342; 88360; 94762; 97161-GP; A9270-GY; J0330; J0690; J1100; J1170; J2250; J2405; J2704; J2710; J2765; J3010; J7042; J7120; Q9968

== ENCOUNTER 2017-07-19 04:46 | Emergency (ER) | payer MEDICARE ==
[2017-07-19 05:06] VITALS: BP 172/59
--- NOTE | 2017-07-19 05:43 | EDM.PDOC ---
ED HPI GENERAL MEDICAL PROBLEM - General Chief Complaint: Abdominal Pain Stated Complaint: NO BM 6 DAYS Time Seen by Provider: 07/19/17 05:20 Source of Information: Reports: Patient, Family History Limitations: Reports: No Limitations - History of Present Illness INITIAL COMMENTS - FREE TEXT/NARRATIVE: 81-year-old female had a mastectomy on Friday, discharged on Friday and is in the emergency room this morning because she has not had a bowel movement. She has intermittent abdominal fullness and pain and feels she needs to have a bowel movement but can't. She has chronic mild constipation but with the pain medication she's been taking it's been much worse. Intermittent nausea and mild vomiting as well. Onset: Gradual Severity: Moderate Associated Symptoms: Reports: Nausea/Vomiting. Denies: Chest Pain, Fever/Chills , Shortness of Breath Lower Abdomen Pain Score (Numeric/FACES): 9 - Related Data Allergies Allergy/AdvReac Type Severity Reaction Status Date / Time No Known Allergies Allergy Verified 07/19/17 05:11 Home Meds: Home Meds Calcium Carbonate/Vitamin D3 [Calcium 600 + Vit D Tablet] 1 each PO DAILY [History] Insulin Glarg,Human.Rec.Analog [Lantus Solostar] 20 unit SQ BID 10/11/16 [ History] Lansoprazole [Prevacid] 30 mg PO DAILY 10/11/16 [History] Lovastatin 40 mg PO DAILY 10/11/16 [History] Metoprolol Tartrate 100 mg PO BID 10/11/16 [History] Multivitamin with Minerals [Multivitamins with Minerals] 1 each PO DAILY [History] amLODIPine Besylate [Amlodipine Besylate] 10 mg PO DAILY 10/11/16 [History] Insulin Aspart [Novolog Flexpen] 5 - 10 unit SQ TIDAC 07/04/17 [History] Losartan Potassium 25 mg PO DAILY 07/04/17 [History] Docusate Sodium [Colace] 50 mg PO DAILY 07/08/17 [History] Psyllium with Sucrose [Metamucil] 1 each PO DAILY PRN 07/11/17 [History] Acetaminophen [Tylenol] 650 mg PO Q4H PRN tablet 07/16/17 [Rx] Mupirocin Oint [Bactroban Oint] 1 gm TOP BID tube 07/16/17 [Rx] traMADol [Ultram] 50 mg PO Q6H PRN #30 tablet 07/16/17 [Rx] Hydrocodone/Acetaminophen [Hydrocodon-Acetaminophen 5-325] 1 tab PO TID PRN 10/28 [History] Past Medical History HEENT History: Reports: Impaired Vision Cardiovascular History: Reports: CAD, High Cholesterol, Hypertension, Stents Gastrointestinal History: Reports: Cholelithiasis, Colon Polyp, GERD Genitourinary History: Reports: Chronic Renal Insuffiency, Other (See Below) Other Genitourinary History: frequency Musculoskeletal History: Reports: None Endocrine/Metabolic History: Reports: Diabetes, Type II, IDDM Hematologic History: Reports: Blood Transfusion(s) Oncologic (Cancer) History: Reports: Other (See Below) Other Oncologic History: skin cancer on leg Dermatologic History: Reports: Other (See Below) Other Dermatologic History: skin cancer - Infectious Disease History Infectious Disease History: Reports: Chicken Pox, Measles, Mumps - Past Surgical History Cardiovascular Surgical History: Reports: Coronary Artery Stent GI Surgical History: Reports: Appendectomy, Cholecystectomy, Colonoscopy Female Surgical History: Reports: Mastectomy Musculoskeletal Surgical History: Reports: Knee Replacement Dermatological Surgical History: Reports: Skin Biopsy Social & Family History - Family History Family Medical History: Noncontributory - Tobacco Use Smoking Status *Q: Never Smoker - Caffeine Use Caffeine Use: Reports: Coffee - Recreational Drug Use Recreational Drug Use: No ED ROS GENERAL - Review of Systems Review Of Systems: See Below Constitutional: Denies: Fever, Chills Respiratory: Denies: Shortness of Breath Cardiovascular: Reports: Chest Pain (Pain from surgical site is present) GI/Abdominal: Reports: Abdominal Pain, Constipation, Nausea, Vomiting Skin: Reports: No Symptoms Neurological: Reports: No Symptoms ED EXAM, GI/ABD - Physical Exam Exam: See Below Exam Limited By: No Limitations General Appearance: Alert, No Apparent Distress Eyes: Bilateral: Normal Appearance Respiratory/Chest: No Respiratory Distress GI/Abdominal Exam: Normal Bowel Sounds, Distended (Abdomen does feel somewhat distended, diffuse discomfort to palpation) Rectal (Female) Exam: Normal Exam. No: Fecal Impaction, Tenderness Course - Vital Signs Last Recorded V/S: Last Vital Signs Temp 98.3 F 07/19/17 05:03 Pulse 71 07/19/17 05:03 Resp 16 07/19/17 05:03 BP 172/59 H 07/19/17 05:03 Pulse Ox 96 07/19/17 05:03 - Orders/Labs/Meds Orders: Active Orders 24 hr Category Date Time Status Abdomen 2V AP Flat Upright [CR] Stat Exams 07/19/17 05:32 Taken UA W/MICROSCOPIC [URIN] Urgent Lab 07/19/17 06:28 Ordered Labs: Laboratory Tests 07/19/17 Range/Units 06:28 Urine Color Yellow Urine Appearance Clear Urine pH 8.0 (4.5-8.0) Ur Specific [place] 1.015 (1.008-1.030) Urine Protein Negative (NEGATIVE) mg/dL Urine Glucose (UA) 1000 H (NEGATIVE) mg/dL Urine Ketones Negative (NEGATIVE) mg/dL Urine Occult Blood Negative (NEGATIVE) Urine Nitrite Negative (NEGATIVE) Urine Bilirubin Negative (NEGATIVE) Urine Urobilinogen Normal (NORMAL) mg/dL Ur Leukocyte Esterase Negative (NEGATIVE) Urine RBC 0-5 (0-5) Urine WBC Not seen (0-5) Ur Epithelial Cells Not seen Amorphous Sediment Not seen Urine Bacteria Not seen Urine Mucus Not seen Meds: Medications Discontinued Medications Generic Name Dose Route Start Last Admin Trade Name Freq PRN Reason Stop Dose Admin Bisacodyl 10 mg 07/19/17 06:05 07/19/17 06:12 Dulcolax RECTAL 07/19/17 06:06 10 mg ONETIME ONE Administration Ondansetron HCl 4 mg 07/19/17 06:05 07/19/17 06:12 Zofran Odt PO 07/19/17 06:06 4 mg ONETIME ONE Administration - Re-Assessments/Exams Free Text/Narrative Re-Assessment/Exam: 07/19/17 05:41 Bladder scan was obtained and showed only 216 mL of urine. Rectal exam revealed an empty rectal vault. A two-view abdominal x-ray was obtained. 07/19/17 06:28 Abdominal x-ray showed no significant constipation or ileus. Dr. Paul also looked at the x-ray and recommended she try one half of a colonoscopy preparation. She was given a Dulcolax suppository and a Zofran sublingual. We did empty the bladder with a catheter and got 220 mL, a UA was sent for urinalysis. 07/19/17 06:40 UA was negative other than the presence of glucose. Patient was encouraged to follow one half strength colonoscopy preparation and return if not improving. Departure - Departure Time of Disposition: 07:03 Disposition: Home, Self-Care 01 Condition: Fair Clinical Impression: Constipation by delayed colonic transit Abdominal pain Qualifiers: Abdominal location: generalized Qualified Code(s): R10.84 - Generalized abdominal pain - Discharge Information Instructions: Constipation, Adult Referrals: Raf Walker Sr, MD [Primary Care Provider] - Forms: ED Department Discharge Care Plan Goals: Try to lessen frequency of pain medications if possible, and use one half of a colonoscopy preparation with MiraLAX as described. Return in the next 24-48 hours if not improving satisfactorily. - My Orders Last 24 Hours: My Active Orders 07/19/17 05:32 Abdomen 2V AP Flat Upright [CR] Stat 07/19/17 06:28 UA W/MICROSCOPIC [URIN] Urgent - Assessment/Plan Last 24 Hours: My Active Orders 07/19/17 05:32 Abdomen 2V AP Flat Upright [CR] Stat 07/19/17 06:28 UA W/MICROSCOPIC [URIN] Urgent
[2017-07-19] MEDS ORDERED: Bisacodyl 10 MG Supp RECTAL ONE (06:05)
[2017-07-19] MEDS ORDERED: Ondansetron 4 MG Tab.DIS PO ONE (06:05)
--- NOTE | 2017-07-21 08:39 | CR ---
Abdomen 2V AP Flat Upright CLINICAL HISTORY: Abdominal pain FINDINGS: There are surgical drains of the left anterior chest. The there is some gaseous distention of small bowel with scattered air-fluid levels. There is a large amount stool in the left colon. No f ree air is identified. There are surgical clips in the right upper quadrant IMPRESSION: Small bowel distention in a nonspecific pattern Significant fecal retention in the left colon. There may be fecal impaction
== END 2017-07-19 07:03 | disposition home or self-care (01) ==
LOC: JP.ED 04:46
DX: K59.01 Slow transit constipation (principal); E11.22 Type 2 diabetes mellitus with diabetic chronic kidney disease; I12.9 Hypertensive chronic kidney disease with stage 1 through stage 4 chronic kidney disease, or unspecified chronic kidney disease; N18.9 Chronic kidney disease, unspecified; E78.00 Pure hypercholesterolemia, unspecified; Z79.4 Long term (current) use of insulin; Z79.899 Other long term (current) drug therapy
CPT/HCPCS: 51702; 51798; 74019; 81001; 99284; A9270

== ENCOUNTER 2017-07-29 08:09 | Day surgery (SDC) | payer MEDICARE ==
[~2017-07-29 08:09] MED LIST changes: +Bupivacaine 0.5% 50 ML MDV ONE; -HYDROmorphone/Normal Saline 15 MG/30 ML PCA IV PRN; +Lidocaine 1% with EPINEPHrine 1:100,000 50 ML MDV ONE; +Midazolam 1 MG/ML 2 ML SDV ONE; +Propofol 200 MG/20 ML SDV ONE; +fentaNYL 100 MCG/2 ML SDV ONE
[2017-07-29] MEDS ORDERED: Lactated Ringers 1,000 ML IV SCH (09:00)
[2017-07-29] MEDS ORDERED: Dextrose 5%-Lactated Ringers 1,000 ML IV SCH (09:00)
[2017-07-29] MEDS ORDERED: ceFAZolin 2 GM in Premix Bag 1 BAG IV ONE (09:30)
[2017-07-29 13:12] VITALS: BP 163/73
--- NOTE | 2017-07-31 08:47 | OR ---
DATE OF PROCEDURE: 07/29/2017 PREOPERATIVE DIAGNOSIS: Indication for central venous access. POSTOPERATIVE DIAGNOSIS: Indication for central venous access. PROCEDURE: Insertion of Bard PowerPort via right subclavian vein approach ([id number]). ANESTHESIA: Local plus IV sedation. BUCKLE STRAP PUNCHER: DAVIS Diana. 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 The lymph nodes were negative. After preoperative discussion with Medical Oncology, the plan is to proceed with adjuvant chemotherapy to provide adequate venous access and a Bard port has been requested. Potential risks of the procedure including bleeding, infection, hemopneumothorax, or injuring the vasculature during the procedure were reviewed and the patient wishes to proceed. PROCEDURE IN DETAIL: The patient was taken to the operating room and placed in a supine position. After IV sedation was administered, the upper chest and neck areas were prepped and draped. Right subclavian area was anesthetized with 1% lidocaine, mixed with Marcaine and left subclavian vein cannulated. Guidewire was passed from there into the superior vena cava. Some additional local was then injected. Transverse infraclavicular incision was made and carried down through the skin and subcutaneous tissue and the pectoralis major fascia. Subfascial pocket was then constructed bluntly and the Bard port was then assembled, flushed with heparinized saline, and Bard port placed into the pocket using fluoroscopic evaluation. Catheter was cut such that the tip would lie in the right atrium over the introducer and peel-away catheter. The Bard port catheter was then placed without difficulty and good positioning was confirmed fluoroscopically. Good in and outflow was noted through the port flushed with heparinized saline. Incisions were then closed with 2 layers of 3-0 Vicryl stitch deep and a 4-0 Vicryl subcuticular stitch. Dressing was applied. The patient was taken to the recovery room in satisfactory condition. There were no other complications. Seun Paul MD Job #: [id number]
== END 2017-07-29 12:30 | disposition home or self-care (01) ==
LOC: JP.SDS 08:09
PROVIDERS: ATTEND Surgery
DX: C50.912 Malignant neoplasm of unspecified site of left female breast (principal); I10 Essential (primary) hypertension; I25.10 Atherosclerotic heart disease of native coronary artery without angina pectoris; E11.9 Type 2 diabetes mellitus without complications; E78.00 Pure hypercholesterolemia, unspecified; Z90.12 Acquired absence of left breast and nipple
CPT/HCPCS: 36561; 76001; 82962; C1776; C1788; J0690; J1642; J2250; J2704; J3010; J7120

== ENCOUNTER 2017-10-13 09:56 | Emergency (ER) | payer MEDICARE ==
[2017-10-13 10:46] VITALS: BP 132/57
--- NOTE | 2017-10-13 11:08 | EDM.PDOC ---
ED HPI GENERAL MEDICAL PROBLEM - General Chief Complaint: ENT Problem Stated Complaint: SORE THROAT Time Seen by Provider: 10/13/17 11:03 Source of Information: Reports: Patient, Family () History Limitations: Reports: No Limitations - History of Present Illness INITIAL COMMENTS - FREE TEXT/NARRATIVE: With sore throat this am. Bilateral ear pain. Undergoing chemo for breast cancer. Has had 4 treatments. Denies fever. No cough. Onset: Gradual Onset Date: 10/10/17 Duration: Getting Worse Location: Reports: Face Quality: Reports: Stabbing Severity: Moderate Improves with: Reports: Other (lozenge) Worsens with: Reports: Eating Associated Symptoms: Reports: No Other Symptoms Throat Pain Score (Numeric/FACES): 5 - Related Data Allergies Allergy/AdvReac Type Severity Reaction Status Date / Time No Known Allergies Allergy Verified 08/11/17 10:03 Home Meds: Home Meds Calcium Carbonate/Vitamin D3 [Calcium 600 + Vit D Tablet] 1 each PO DAILY [History] Insulin Glarg,Human.Rec.Analog [Lantus Solostar] 20 unit SQ BID 10/11/16 [ History] Lansoprazole [Prevacid] 30 mg PO DAILY 10/11/16 [History] Lovastatin 40 mg PO BEDTIME 10/11/16 [History] Metoprolol Tartrate 100 mg PO BID 10/11/16 [History] Multivitamin with Minerals [Multivitamins with Minerals] 1 each PO DAILY [History] amLODIPine Besylate [Amlodipine Besylate] 10 mg PO DAILY 10/11/16 [History] Insulin Aspart [Novolog Flexpen] 5 - 10 unit SQ TIDAC 07/04/17 [History] Losartan Potassium 25 mg PO DAILY 07/04/17 [History] Docusate Sodium [Colace] 100 mg PO BID 07/08/17 [History] Psyllium with Sucrose [Metamucil] 1 each PO DAILY PRN 07/11/17 [History] Mupirocin Oint [Bactroban Oint] 1 gm TOP BID tube 07/16/17 [Rx] Acetaminophen [Tylenol] 650 mg PO Q6H PRN 07/28/17 [History] Losartan/Hydrochlorothiazide [Hyzaar 50-12.5 Tablet] 1 tab PO DAILY 06/18/18 [ History] Past Medical History HEENT History: Reports: Impaired Vision Cardiovascular History: Reports: CAD, High Cholesterol, Hypertension, Stents Respiratory History: Reports: None Gastrointestinal History: Reports: Cholelithiasis, Colon Polyp, GERD Genitourinary History: Reports: Chronic Renal Insuffiency, Renal Calculus, Other (See Below) Other Genitourinary History: frequency 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 Musculoskeletal History: Reports: Arthritis, Fracture Neurological History: Reports: Neuropathy, Diabetic Psychiatric History: Reports: Anxiety, Depression, Panic Attack Endocrine/Metabolic History: Reports: Diabetes, Type II, IDDM Hematologic History: Reports: Blood Transfusion(s) Immunologic History: Reports: None Oncologic (Cancer) History: Reports: Breast, Other (See Below) Other Oncologic History: skin cancer on leg Dermatologic History: Reports: Melanoma, Other (See Below) Other Dermatologic History: skin cancer - Infectious Disease History Infectious Disease History: Reports: Chicken Pox, Measles, Mumps - Past Surgical History Head Surgeries/Procedures: Reports: None HEENT Surgical History: Reports: None Cardiovascular Surgical History: Reports: Coronary Artery Stent Respiratory Surgical History: Reports: None GI Surgical History: Reports: Appendectomy, Cholecystectomy, Colonoscopy, Polypectomy Female Surgical History: Reports: Breast Biopsy, Lithotripsy/ESWL, Mastectomy Endocrine Surgical History: Reports: None Neurological Surgical History: Reports: None Musculoskeletal Surgical History: Reports: Knee Replacement Oncologic Surgical History: Reports: Biopsy of Breast, Mastectomy Dermatological Surgical History: Reports: Skin Biopsy Social & Family History - Family History Family Medical History: Noncontributory - Tobacco Use Smoking Status *Q: Never Smoker - Caffeine Use Caffeine Use: Reports: Coffee - Recreational Drug Use Recreational Drug Use: No ED ROS ENT - Review of Systems Review Of Systems: See Below Constitutional: Reports: No Symptoms HEENT: Reports: Ear Pain, Throat Pain, Throat Swelling Respiratory: Reports: No Symptoms Cardiovascular: Reports: No Symptoms Endocrine: Reports: No Symptoms GI/Abdominal: Reports: No Symptoms : Reports: No Symptoms Musculoskeletal: Reports: No Symptoms ED EXAM, ENT - Physical Exam Exam: See Below Exam Limited By: No Limitations General Appearance: Alert, WD/WN, No Apparent Distress Ears: Normal External Exam, Normal Canal, Hearing Grossly Normal, Normal TMs Nose: Normal Inspection, Normal Mucousa, No Blood Mouth/Throat: Normal Inspection, Normal Gums, Normal Lips, Normal Oropharynx, Normal Teeth, Oral Ulcers (under lip) Head: Atraumatic, Normocephalic, Other (loss of hair due to chemo) Neck: Normal Inspection, Supple, Non-Tender, Full Range of Motion Respiratory/Chest: No Respiratory Distress, Lungs Clear, Normal Breath Sounds, No Accessory Muscle Use, Chest Non-Tender Cardiovascular: Normal Peripheral Pulses, Regular Rate, Rhythm, No Edema, No Gallop, No JVD, No Murmur, No Rub GI/Abdominal: Normal Bowel Sounds, Soft, Non-Tender, No Organomegaly, No Distention, No Abnormal Bruit, No Mass Course - Vital Signs Last Recorded V/S: Last Vital Signs Temp 99.2 F 10/13/17 10:45 Pulse 77 10/13/17 10:45 Resp 18 10/13/17 10:45 BP 132/57 L 10/13/17 10:45 Pulse Ox 96 10/13/17 10:45 - Orders/Labs/Meds Orders: Active Orders 24 hr Category Date Time Status CULTURE STREP A CONFIRMATION [RM] Stat Lab 10/13/17 11:06 Results STREP SCRN A RAPID W CULT CONF [] Stat Lab 10/13/17 11:06 Results Departure - Departure Time of Disposition: 11:28 Disposition: Home, Self-Care 01 Condition: Good Clinical Impression: Viral pharyngitis - Discharge Information *PRESCRIPTION DRUG MONITORING PROGRAM REVIEWED*: Not Applicable *COPY OF PRESCRIPTION DRUG MONITORING REPORT IN PATIENT REBECCA: Not Applicable Instructions: Pharyngitis, [id number] Referrals: Raf Walker Sr, MD [Primary Care Provider] - Forms: ED Department Discharge Additional Instructions: Rapid strep negative. Culture pending. Will cover with Amoxicillin due to low grade temp and immunocompromised state due to chemo. Rx for Amoxicillin 500mg 2 tabs twice daily x 7 days. Discussed mouth cares during chemo. - Problem List & Annotations (1) Viral pharyngitis SNOMED Code(s): 2793069 Code(s): J02.9 - ACUTE PHARYNGITIS, UNSPECIFIED Status: Acute Priority: Low Current Visit: Yes - My Orders Last 24 Hours: My Active Orders 10/13/17 11:06 CULTURE STREP A CONFIRMATION [RM] Stat STREP SCRN A RAPID W CULT CONF [] Stat - Assessment/Plan Last 24 Hours: My Active Orders 10/13/17 11:06 CULTURE STREP A CONFIRMATION [RM] Stat STREP SCRN A RAPID W CULT CONF [RM] Stat
== END 2017-10-13 11:48 | disposition home or self-care (01) ==
LOC: JP.ED 09:56
DX: J02.9 Acute pharyngitis, unspecified (principal); I12.9 Hypertensive chronic kidney disease with stage 1 through stage 4 chronic kidney disease, or unspecified chronic kidney disease; E11.22 Type 2 diabetes mellitus with diabetic chronic kidney disease; N18.9 Chronic kidney disease, unspecified; E11.40 Type 2 diabetes mellitus with diabetic neuropathy, unspecified; E78.00 Pure hypercholesterolemia, unspecified; I25.10 Atherosclerotic heart disease of native coronary artery without angina pectoris; F32.9 Major depressive disorder, single episode, unspecified; F41.9 Anxiety disorder, unspecified; Z79.84 Long term (current) use of oral hypoglycemic drugs; Z79.899 Other long term (current) drug therapy
CPT/HCPCS: 87081; 87430; 99283

== ENCOUNTER 2018-07-16 06:14 | Day surgery (SDC) | payer MEDICARE ==
[2018-07-16] MEDS ORDERED: Sodium Chloride 0.9% 1,000 ML IV SCH (07:00)
[2018-07-16] MEDS ORDERED: Propofol 200 MG/20 ML SDV ONE (07:38)
[2018-07-16] MEDS ORDERED: fentaNYL 100 MCG/2 ML SDV ONE (07:38)
[2018-07-16 09:07] VITALS: BP 143/65
--- NOTE | 2018-07-17 09:49 | PROC ---
DATE OF PROCEDURE: 07/16/2018 SURGEON: Raf Walker MD INDICATION: Morena is an 82-year-old female, comes in for a colonoscopy. She has had a history of polyps in the past. DESCRIPTION OF PROCEDURE: The risks and benefits were explained to the patient and was taken to the OR. Anesthesia was given by nurse early childhood assistant. During the procedure, we used 100 mg of propofol and 100 mcg of fentanyl. The Olympus 180-AL scope was used. It was placed into the rectum and advanced under direct vision. The rectum was examined with a gloved finger prior to starting the procedure. The tube was advanced and got to 15 cm, noted an area we could not get through; there were multiple diverticula. Multiple attempts were tried to find an opening, was unsuccessful. The tube was removed. The patient tolerated the procedure well. PREOPERATIVE DIAGNOSIS: History of polyps. POSTOPERATIVE DIAGNOSIS: No entry was noted beyond 15 cm, therefore, failed colonoscopy. We will do a Cologuard test or lower GI at a later time. Raf Walker MD /[id number]
== END 2018-07-16 09:45 | disposition home or self-care (01) ==
LOC: JP.SDS 06:14
PROVIDERS: ATTEND Internal Medicine
DX: Z12.11 Encounter for screening for malignant neoplasm of colon (principal); K57.30 Diverticulosis of large intestine without perforation or abscess without bleeding; Z86.010 Personal history of colon polyps; I12.9 Hypertensive chronic kidney disease with stage 1 through stage 4 chronic kidney disease, or unspecified chronic kidney disease; E11.22 Type 2 diabetes mellitus with diabetic chronic kidney disease; N18.9 Chronic kidney disease, unspecified; C44.90 Unspecified malignant neoplasm of skin, unspecified
CPT/HCPCS: G0104; J2704; J3010; J7030

== ENCOUNTER 2018-11-05 06:17 | Day surgery (SDC) | payer MEDICARE ==
[2018-11-05] MEDS ORDERED: Sodium Chloride 0.9% 10 ML Syringe FLUSH PRN (06:30)
[2018-11-05 08:15] VITALS: BP 151/70; PULSE 61
--- NOTE | 2018-11-05 12:10 | OR ---
DATE OF PROCEDURE: 11/05/2018 SURGEON: Ellie Tidwell MD POSTOPERATIVE CARE: Postoperative care will be provided mainly at the [address] [place] [address] [facility] in conjunction with [facility]. PREOPERATIVE DIAGNOSIS: Cataract, right eye. POSTOPERATIVE DIAGNOSIS: Cataract, right eye. PROCEDURE: Phacoemulsification with intraocular lens placement, right eye. ANESTHESIA: Topical and intracameral. ESTIMATED BLOOD LOSS: Minimal. COMPLICATIONS: None. PATHOLOGY SPECIMENS: None. SURGICAL FINDINGS: None. INDICATION FOR PROCEDURE: The patient is an 82-year-old female with history of a visually significant cataract in the right eye, which interfered with activities of daily living. This consisted of a nuclear sclerosis cataract. Following careful discussion of the risks, benefits and alternatives to cataract extraction with intraocular lens placement including blindness and , the patient elected to proceed, and informed, written consent was obtained prior to the procedure. DESCRIPTION OF THE PROCEDURE: The patient was previously identified, and a graciela placed above the right eye. All sources, including the patient, indicated that the right eye was the correct eye. The patient was subsequently taken to the operating room where standard monitors were applied. The patient was then prepped and draped in the usual sterile fashion for ophthalmic surgery. Attention was first directed at the 12 o'clock position where a paracentesis port was fashioned. Shugar solution followed by Viscoat was instilled into the eye. Attention was then directed to the 8:30 position where a triplanar incision was made in a near-clear manner using a keratome. A continuous capsulorrhexis was then made using a combination of the cystotome and Utrata forceps. Hydrodissection was achieved using a balanced salt solution, and the lens rotated nicely. Phacoemulsification was then done using a modified [id number] technique without complication. Phaco time was 19.44 CDE. The remaining cortex was removed using the irrigation/aspiration handpiece. Provisc was then instilled into the eye. A Technis lens, model [id number], at 25.5 diopters was then placed in the capsular bag using an [place] injector. The remaining viscoelastic was removed using the irrigation/aspiration forceps. All wounds were then checked and found to be watertight. The lid speculum and drapes were removed. Maxitrol ointment was placed in the patient's right eye, and the eye was shielded. The patient tolerated the procedure well. The patient was instructed to follow up tomorrow. All needle and sponge counts were correct at the end of the procedure. Ellie Tidwell MD /[id number]
== END 2018-11-05 08:25 | disposition home or self-care (01) ==
LOC: JP.SDS 06:17
PROVIDERS: ATTEND Ophthalmology
DX: E11.36 Type 2 diabetes mellitus with diabetic cataract (principal); H25.11 Age-related nuclear cataract, right eye; I10 Essential (primary) hypertension
CPT/HCPCS: 66984; V2632

== ENCOUNTER 2018-11-19 05:51 | Day surgery (SDC) | payer MEDICARE ==
[2018-11-19] MEDS ORDERED: Sodium Chloride 0.9% 10 ML Syringe FLUSH PRN (06:30)
[2018-11-19 07:48] VITALS: BP 144/72; PULSE 64
--- NOTE | 2018-11-19 11:42 | OR ---
DATE OF PROCEDURE: 11/19/2018 SURGEON: Ellie Tidwell MD POSTOPERATIVE CARE: Postoperative care will be provided mainly at the [address] [place] [address] [facility] in conjunction with [facility] / [facility]. PREOPERATIVE DIAGNOSIS: Cataract, left eye. POSTOPERATIVE DIAGNOSIS: Cataract, left eye. PROCEDURE: Phacoemulsification with intraocular lens placement, left eye. ANESTHESIA: Topical and intracameral. ESTIMATED BLOOD LOSS: Minimal. COMPLICATIONS: None. PATHOLOGY SPECIMENS: None. SURGICAL FINDINGS: None. INDICATION FOR PROCEDURE: The patient is an 82-year-old female with history of a visually significant cataract in the left eye, which interfered with activities of daily living. This consisted of a nuclear sclerosis cataract. Following careful discussion of the risks, benefits and alternatives to cataract extraction with intraocular lens placement including blindness and , the patient elected to proceed, and informed, written consent was obtained prior to the procedure. DESCRIPTION OF THE PROCEDURE: The patient was previously identified, and a graciela placed above the left eye. All sources, including the patient, indicated that the left eye was the correct eye. The patient was subsequently taken to the operating room where standard monitors were applied. The patient was then prepped and draped in the usual sterile fashion for ophthalmic surgery. Attention was first directed at the 12 o'clock position where a paracentesis port was fashioned. Shugar solution followed by Viscoat was instilled into the eye. Attention was then directed to the 8:30 position where a triplanar incision was made in a near-clear manner using a keratome. A continuous capsulorrhexis was then made using a combination of the cystotome and Utrata forceps. Hydrodissection was achieved using a balanced salt solution, and the lens rotated nicely. Phacoemulsification was then done using a modified [id number] technique without complication. Phaco time was 15.71 CDE. The remaining cortex was removed using the irrigation/aspiration handpiece. Provisc was then instilled into the eye. A Technis lens, model [id number], at 25.5 diopters was then placed in the capsular bag using an [place] injector. The remaining viscoelastic was removed using the irrigation/aspiration forceps. All wounds were then checked and found to be watertight. The lid speculum and drapes were removed. Maxitrol ointment was placed in the patient's left eye, and the eye was shielded. The patient tolerated the procedure well. The patient was instructed to follow up tomorrow. All needle and sponge counts were correct at the end of the procedure. Ellie Tidwell MD /[id number]
== END 2018-11-19 08:26 | disposition home or self-care (01) ==
LOC: JP.SDS 05:51
PROVIDERS: ATTEND Ophthalmology
DX: E11.36 Type 2 diabetes mellitus with diabetic cataract (principal); H25.12 Age-related nuclear cataract, left eye; K21.9 Gastro-esophageal reflux disease without esophagitis; Z85.3 Personal history of malignant neoplasm of breast
CPT/HCPCS: V2632

== ENCOUNTER 2020-06-06 05:02 | Inpatient (IN) | payer MEDICARE ==
--- NOTE | 2020-06-06 05:38 | EDM.PDOC ---
ED HPI GENERAL MEDICAL PROBLEM - General Chief Complaint: Neuro Symptoms/Deficits Stated Complaint: WEEKNESS Time Seen by Provider: 06/06/20 05:37 Source of Information: Reports: Patient History Limitations: Reports: No Limitations - History of Present Illness INITIAL COMMENTS - FREE TEXT/NARRATIVE: pt got up to go to the bathroom and she could not maintain her balance. She fell against the wall but did not injure herself. Onset: Today, Sudden Duration: Hour(s): Location: Reports: Generalized, Other ( couldn,t maintain her balance. She does have severe diabetic neuropathy. She does have a bs at this time of 134. ) Associated Symptoms: Reports: Weakness - Related Data Allergies Allergy/AdvReac Type Severity Reaction Status Date / Time No Known Allergies Allergy Verified 06/06/20 05:17 Home Meds: Home Meds Calcium Carbonate/Vitamin D3 [Calcium 600 + Vit D Tablet] 1 each PO .THREETIMESWEEKLY 10/11/16 [History] Insulin Glarg,Human.Rec.Analog [Lantus Solostar] 20 unit SQ BID 10/11/16 [Histor y] Lovastatin 40 mg PO BEDTIME 10/11/16 [History] Multivitamin with Minerals [Multivitamins with Minerals] 1 each PO DAILY 10/11/16 [History] amLODIPine Besylate [Amlodipine Besylate] 10 mg PO DAILY 10/11/16 [History] Insulin Aspart [Novolog Flexpen] 12 - 20 unit SQ DAILY 07/04/17 [History] Losartan Potassium 100 mg PO DAILY 07/04/17 [History] Acetaminophen [Tylenol] 650 mg PO Q6H PRN 07/28/17 [History] Triamcinolone Acetonide [Triamcinolone Acetonide 0.5% Oint] 1 applic TOP BID 11/16/18 [History] Cholecalciferol (Vitamin D3) [Vitamin D] 1,000 unit PO DAILY 10/13/19 [History] Metoprolol Tartrate [Lopressor] 100 mg PO DAILY 06/06/20 [History] Past Medical History HEENT History: Reports: Cataract, Impaired Vision Cardiovascular History: Reports: CAD, High Cholesterol, Hypertension, Stents Respiratory History: Reports: None Gastrointestinal History: Reports: Cholelithiasis, Colon Polyp, GERD Genitourinary History: Reports: Chronic Renal Insuffiency, Renal Calculus, Other (See Below) Other Genitourinary History: frequency 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 Musculoskeletal History: Reports: Arthritis, Fracture Neurological History: Reports: Neuropathy, Diabetic Psychiatric History: Reports: Anxiety, Depression, Panic Attack Endocrine/Metabolic History: Reports: Diabetes, Type II, IDDM Hematologic History: Reports: Anemia, Blood Transfusion(s) Immunologic History: Reports: None Oncologic (Cancer) History: Reports: Breast, Other (See Below) Other Oncologic History: skin cancer on leg Dermatologic History: Reports: Melanoma, Other (See Below) Other Dermatologic History: skin cancer - Infectious Disease History Infectious Disease History: Reports: Chicken Pox, Measles, Mumps, Pertussis (Whooping Cough) - Past Surgical History Head Surgeries/Procedures: Reports: None HEENT Surgical History: Reports: None, Cataract Surgery Cardiovascular Surgical History: Reports: Coronary Artery Stent Respiratory Surgical History: Reports: None GI Surgical History: Reports: Appendectomy, Cholecystectomy, Colonoscopy, EGD, Polypectomy Female Surgical History: Reports: Breast Biopsy, Lithotripsy/ESWL, Mastectomy Other Female Surgeries/Procedures: left side mastectomy Endocrine Surgical History: Reports: None Neurological Surgical History: Reports: None Musculoskeletal Surgical History: Reports: Knee Replacement Oncologic Surgical History: Reports: Biopsy of Breast, Mastectomy Dermatological Surgical History: Reports: Skin Biopsy Social & Family History - Family History Family Medical History: No Pertinent Family History - Tobacco Use Tobacco Use Status *Q: Never Tobacco User - Caffeine Use Caffeine Use: Reports: Coffee - Recreational Drug Use Recreational Drug Use: No ED ROS GENERAL - Review of Systems Review Of Systems: See Below Constitutional: Reports: Weakness HEENT: Reports: No Symptoms Respiratory: Reports: No Symptoms Cardiovascular: Reports: No Symptoms Endocrine: Reports: No Symptoms GI/Abdominal: Reports: No Symptoms : Reports: No Symptoms Musculoskeletal: Reports: Muscle Stiffness, Other (muscle weakness) Skin: Reports: No Symptoms ED EXAM, NEURO - Physical Exam Exam: See Below Text/Narrative:: pt arrived with a history of having difficulty ambulating. She lost her balance and fell into the wall. Exam Limited By: No Limitations General Appearance: Alert, No Apparent Distress, Other (pupils equal and reactive. ) Ears: Normal TMs Nose: Normal Inspection Throat/Mouth: Normal Inspection Head Exam: Atraumatic Neck: Normal Inspection Respiratory/Chest: No Respiratory Distress Cardiovascular: Other (pt has a slightly irregular rhythm. A ekg was obtained which shows a basic rhythm of sinus with frequent pacs. She does have a left bundle branch block. ) GI/Abdominal: Soft, Non-Tender (Female) Exam: Deferred Rectal (Female) Exam: Deferred Neurological: Alert, Other (pt has normal strength bilaterally. There is no facial deviation. ) Back Exam: Normal Inspection Extremities: Normal Inspection, Other (pt has marked neuropathy) Psychiatric: Anxious Course - Vital Signs Last Recorded V/S: Last Vital Signs Temp 36.3 C 06/06/20 05:19 Pulse 69 06/06/20 06:45 Resp 20 06/06/20 06:45 BP 129/62 06/06/20 06:45 Pulse Ox 94 L 06/06/20 06:45 - Orders/Labs/Meds Orders: Active Orders 24 hr Category Date Time Status EKG Documentation Completion [RC] ASDIRECTED Care 06/06/20 05:36 Active GLUCOSE POC LAB TO COLLECT JPM [POC] Stat Lab 06/06/20 06:46 Ordered EKG 12 Lead [EK] Routine Ther 06/06/20 05:36 Ordered Labs: Laboratory Tests 06/06/20 06/06/20 06/06/20 Range/Units 05:43 05:46 05:46 WBC 11.3 H (4.5-11.0) K/uL RBC 4.21 (3.30-5.50) M/uL Hgb 13.0 (12.0-15.0) g/dL Hct 39.8 (36.0-48.0) % MCV 95 (80-98) fL MCH 31 (27-31) pg MCHC 33 (32-36) % Plt Count 222 (150-400) K/uL Neut % (Auto) 78 H (36-66) % Lymph % (Auto) 10 L (24-44) % Avery % (Auto) 11 H (2-6) % Eos % (Auto) 1 L (2-4) % Baso % (Auto) 0 (0-1) % Sodium 144 (140-148) mmol/L Potassium 4.4 (3.6-5.2) mmol/L Chloride 106 (100-108) mmol/L Carbon Dioxide 26 (21-32) mmol/L Anion Gap 11.9 (5.0-14.0) mmol/L BUN 29 H (7-18) mg/dL Creatinine 1.6 H (0.6-1.0) mg/dL Est Cr Clr Drug Dosing 21.44 mL/min Estimated GFR (MDRD) 31 L (>60) Glucose 141 H (74-106) mg/dL POC Glucose 134 H (74-106) mg/dL Calcium 10.3 H (8.5-10.1) mg/dL Total Bilirubin 0.4 (0.2-1.0) mg/dL AST 13 L (15-37) U/L ALT 21 (12-78) U/L Alkaline Phosphatase 98 (46-116) U/L Total Protein 7.5 (6.4-8.2) g/dL Albumin 3.7 (3.4-5.0) g/dL Globulin 3.8 H (2.3-3.5) g/dL Albumin/Globulin Ratio 1.0 L (1.2-2.2) Urine Color (YELLOW) Urine Appearance (CLEAR) Urine pH (5.0-8.0) Ur Specific [place]ander (1.008-1.030) Urine Protein (NEGATIVE) mg/dL Urine Glucose (UA) (NEGATIVE) mg/dL Urine Ketones (NEGATIVE) mg/dL Urine Occult Blood (NEGATIVE) Urine Nitrite (NEGATIVE) Urine Bilirubin (NEGATIVE) Urine Urobilinogen (0.2-1.0) EU/dL Ur Leukocyte Esterase (NEGATIVE) Urine RBC (0-5) Urine WBC (0-5) Ur Epithelial Cells Amorphous Sediment Urine Bacteria Urine Mucus 06/06/20 Range/Units 06:21 WBC (4.5-11.0) K/uL RBC (3.30-5.50) M/uL Hgb (12.0-15.0) g/dL Hct (36.0-48.0) % MCV (80-98) fL MCH (27-31) pg MCHC (32-36) % Plt Count (150-400) K/uL Neut % (Auto) (36-66) % Lymph % (Auto) (24-44) % Avery % (Auto) (2-6) % Eos % (Auto) (2-4) % Baso % (Auto) (0-1) % Sodium (140-148) mmol/L Potassium (3.6-5.2) mmol/L Chloride (100-108) mmol/L Carbon Dioxide (21-32) mmol/L Anion Gap (5.0-14.0) mmol/L BUN (7-18) mg/dL Creatinine (0.6-1.0) mg/dL Est Cr Clr Drug Dosing mL/min Estimated GFR (MDRD) (>60) Glucose (74-106) mg/dL POC Glucose (74-106) mg/dL Calcium (8.5-10.1) mg/dL Total Bilirubin (0.2-1.0) mg/dL AST (15-37) U/L ALT (12-78) U/L Alkaline Phosphatase (46-116) U/L Total Protein (6.4-8.2) g/dL Albumin (3.4-5.0) g/dL Globulin (2.3-3.5) g/dL Albumin/Globulin Ratio (1.2-2.2) Urine Color Yellow (YELLOW) Urine Appearance Clear (CLEAR) Urine pH 7.0 (5.0-8.0) Ur Specific [place] 1.020 (1.008-1.030) Urine Protein 100 H (NEGATIVE) mg/dL Urine Glucose (UA) Negative (NEGATIVE) mg/dL Urine Ketones Negative (NEGATIVE) mg/dL Urine Occult Blood Negative (NEGATIVE) Urine Nitrite Negative (NEGATIVE) Urine Bilirubin Negative (NEGATIVE) Urine Urobilinogen 0.2 (0.2-1.0) EU/dL Ur Leukocyte Esterase Negative (NEGATIVE) Urine RBC 0-5 (0-5) Urine WBC 0-5 (0-5) Ur Epithelial Cells Few Amorphous Sediment Not seen Urine Bacteria Few Urine Mucus Not seen - Re-Assessments/Exams Free Text/Narrative Re-Assessment/Exam: 06/06/20 07:11 pt had a cat scan of the head which was neg for acute findings. Pt was ambulated and she still was very off balance her speech was understandable but the pt felt it was slightly different. Her said that she was not understandable at 4 thirty. This case was discussed with Dr Walker and he will admit for observation and a followup MRI of the head. Departure - Departure Time of Disposition: 07:14 Disposition: Admitted As Inpatient 68 Condition: Fair Clinical Impression: Slurred speech, Balance problem, Neuropathy - Discharge Information Referrals: Raf Walker Sr, MD [Primary Care Provider] - Forms: ED Department Discharge Care Plan Goals: admit to Dr Walker. Sepsis Event Note (ED) - Evaluation Sepsis Screening Result: No Definite Risk - Focused Exam Vital Signs: Vital Signs Temp Pulse Resp BP Pulse Ox 06/06/20 06:45 69 20 129/62 94 L 06/06/20 06:20 156/63 H 06/06/20 05:53 70 12 135/66 96 06/06/20 05:31 63 150/67 H 06/06/20 05:19 36.3 C 68 13 154/70 H 97 - My Orders Last 24 Hours: My Active Orders 06/06/20 05:36 EKG Documentation Completion [RC] ASDIRECTED EKG 12 Lead [EK] Routine 06/06/20 06:46 GLUCOSE POC LAB TO COLLECT JPM [POC] Stat - Assessment/Plan Last 24 Hours: My Active Orders 06/06/20 05:36 EKG Documentation Completion [RC] ASDIRECTED EKG 12 Lead [EK] Routine 06/06/20 06:46 GLUCOSE POC LAB TO COLLECT JPM [POC] Stat
--- NOTE | 2020-06-06 06:32 | CRLCT ---
INDICATION: Slurred speech and leg weakness. Balance problem. Type 2 diabetes. TECHNIQUE: CT head without contrast. COMPARISON: None. FINDINGS: CSF spaces: Within normal limits for age. Brain parenchyma and extra-axial spaces: The dawkins-white differentiation is normal. No sign of mass, hemorrhage, or midline shift. No extra-axial fluid collection. Skull base and calvarium: The visualized paranasal sinuses and mastoid air cells demonstrate no acute or significant findings. The visualized orbits are grossly unremarkable. No skull fractures. IMPRESSION: Unremarkable noncontrast head CT. No sign of CVA, intracranial hemorrhage, or other significant finding. Dictated by Tereso Ceron MD @ 06/06/2020 6:31:11 AM Please note that all CT scans at this facility use dose modulation, iterative reconstruction, and/or weight-based dosing when appropriate to reduce radiation dose to as low as reasonably achievable. Dictated by: Tereso Ceron MD @ 06/06/2020 06:31:18 (Electronically Signed)
[2020-06-06] MEDS ORDERED: Glucagon,Human Recombinant 1 MG Vial IM PRN (11:38)
[2020-06-06] MEDS ORDERED: 50% Dextrose in Water 50 ML Syringe IVPUSH PRN (11:38)
[2020-06-06] MEDS ORDERED: Acetaminophen 325 MG Tab PO PRN (11:38)
[2020-06-06] MEDS: Insulin Lispro 100 Unit/ML 3 ML KwikPen SUBCUT PRN ×3 (14:10→21:48)
[2020-06-06] MEDS ORDERED: Heparin Sodium 5,000 Units/ML Vial IVPUSH ONE ×2 (14:45→22:03)
[2020-06-06] MEDS: Heparin Sodium/D5W 25,000 UNITS/500 ML BAG IV SCH (15:22)
--- NOTE | 2020-06-06 19:18 | PCM.HP.2 ---
H&P History of Present Illness - General Date of Service: 06/06/20 Admit Problem/Dx: Admission Diagnosis/Problem Admission Diagnosis/Problem CVA, Cerebrovascular accident Source of Information: Patient, EMS, Family History Limitations: Reports: No Limitations - History of Present Illness Initial Comments - Free Text/Narative: Sudden onset of slurred speech and weakness on the left arm and leg. Never had a similar problem before. She is very unsteady with walking due to weakness of the right leg. Onset of Symptoms: Reports: Sudden Location: Reports: Upper Extremity, Right, Lower Extremity, Right Associated Symptoms: Reports: Other (slurred speech) - Related Data Allergies/Adverse Reactions: Allergies Allergy/AdvReac Type Severity Reaction Status Date / Time No Known Allergies Allergy Verified 06/06/20 05:17 Home Medications: Home Meds Calcium Carbonate/Vitamin D3 [Calcium 600 + Vit D Tablet] 1 each PO .THREE TIMESWEEKLY 10/11/16 [History] Insulin Glarg,Human.Rec.Analog [Lantus Solostar] 20 unit SQ BID 10/11/16 [History] Lovastatin 40 mg PO BEDTIME 10/11/16 [History] Multivitamin with Minerals [Multivitamins with Minerals] 1 each PO DAILY 10/11/16 [History] amLODIPine Besylate [Amlodipine Besylate] 10 mg PO DAILY 10/11/16 [History] Insulin Aspart [Novolog Flexpen] 12 - 20 unit SQ DAILY 07/04/17 [History] Losartan Potassium 100 mg PO DAILY 07/04/17 [History] Acetaminophen [Tylenol] 650 mg PO Q6H PRN 07/28/17 [History] Triamcinolone Acetonide [Triamcinolone Acetonide 0.5% Oint] 1 applic TOP BID 11/16/18 [History] Cholecalciferol (Vitamin D3) [Vitamin D] 1,000 unit PO DAILY 10/13/19 [History] Metoprolol Tartrate [Lopressor] 100 mg PO DAILY 06/06/20 [History] Past Medical History HEENT History: Reports: Cataract, Impaired Vision Cardiovascular History: Reports: CAD, High Cholesterol, Hypertension, Stents Respiratory History: Reports: None Gastrointestinal History: Reports: Cholelithiasis, Colon Polyp, GERD Genitourinary History: Reports: Chronic Renal Insuffiency, Renal Calculus, Other (See Below) Other Genitourinary History: frequency CRYOGENICS REPAIRER History: Reports: None Musculoskeletal History: Reports: Arthritis, Fracture Neurological History: Reports: Neuropathy, Diabetic Psychiatric History: Reports: Anxiety, Depression, Panic Attack Endocrine/Metabolic History: Reports: Diabetes, Type II, IDDM Hematologic History: Reports: Anemia, Blood Transfusion(s) Immunologic History: Reports: None Oncologic (Cancer) History: Reports: Breast, Other (See Below) Other Oncologic History: skin cancer on leg Dermatologic History: Reports: Melanoma, Other (See Below) Other Dermatologic History: skin cancer - Infectious Disease History Infectious Disease History: Reports: Chicken Pox, Measles, Mumps, Pertussis (Whooping Cough) - Past Surgical History Head Surgeries/Procedures: Reports: None HEENT Surgical History: Reports: Cataract Surgery Cardiovascular Surgical History: Reports: Coronary Artery Stent GI Surgical History: Reports: Appendectomy, Cholecystectomy, Colonoscopy, EGD, Polypectomy Female Surgical History: Reports: Breast Biopsy, Lithotripsy/ESWL, Mastectomy Other Female Surgeries/Procedures: left side mastectomy Musculoskeletal Surgical History: Reports: Knee Replacement Oncologic Surgical History: Reports: Biopsy of Breast, Mastectomy Dermatological Surgical History: Reports: Skin Biopsy Social & Family History - Family History Family Medical History: No Pertinent Family History - Tobacco Use Tobacco Use Status *Q: Never Tobacco User - Caffeine Use Caffeine Use: Reports: Coffee - Recreational Drug Use Recreational Drug Use: No H&P Review of Systems - Review of Systems: Review Of Systems: See Below General: Reports: Weakness HEENT: Reports: No Symptoms Pulmonary: Reports: No Symptoms Cardiovascular: Reports: No Symptoms Gastrointestinal: Reports: No Symptoms Genitourinary: Reports: No Symptoms Musculoskeletal: Reports: No Symptoms Skin: Reports: No Symptoms Psychiatric: Reports: No Symptoms Neurological: Reports: Trouble Speaking, Difficulty Walking, Weakness, Gait Disturbance Immunologic: Reports: No Symptoms Exam - Exam Exam: See Below - Vital Signs Vital Signs: Last Vital Signs Temp 97.4 F 06/06/20 17:00 Pulse 63 06/06/20 08:40 Resp 14 06/06/20 17:00 BP 134/53 L 06/06/20 17:00 Pulse Ox 94 L 06/06/20 17:00 Weight: 129 lb - Exam General: Alert, Oriented, 4 HEENT: PERRLA, Hearing Intact, Mucosa Moist & [place], Nares Patent, Normal Nasal Septum, Posterior Pharynx Clear, Conjunctiva Clear, EOMI, EACs Clear, TMs Clear Neck: Supple (PAC's), Trachea Midline, 2 Lungs: Clear to Auscultation, Normal Respiratory Effort Cardiovascular: Regular Rate, Regular Rhythm GI/Abdominal Exam: Normal Bowel Sounds (weakness right arm and leg.), Soft, Non- Tender, No Organomegaly, No Distention, No Abnormal Bruit, No Mass, Pelvis Stable Peripheral Pulses: 1+: Brachial (L), Brachial (R) Skin: Warm (weakness right arm and leg to flexion and extension. Mouth decrease movement tongue and face on the right. Speech slurrred.), Dry, Intact Neuro Extensive - Motor, Sensory, Reflexes: Abnormal Gait, Facial Palsy (R) (Partial aphasis) DTR: 1+: Bicep (L), Bicep (R), Patella (L), Patella (R) Psychiatric: Alert, Normal Mood - Patient Data Lab Results Last 24 hrs: Laboratory Results - last 24 hr 06/06/20 06/06/20 06/06/20 Range/Units 05:43 05:46 05:46 WBC 11.3 H (4.5-11.0) K/uL RBC 4.21 (3.30-5.50) M/uL Hgb 13.0 (12.0-15.0) g/dL Hct 39.8 (36.0-48.0) % MCV 95 (80-98) fL MCH 31 (27-31) pg MCHC 33 (32-36) % Plt Count 222 (150-400) K/uL Neut % (Auto) 78 H (36-66) % Lymph % (Auto) 10 L (24-44) % [place] % (Auto) 11 H (2-6) % Eos % (Auto) 1 L (2-4) % Baso % (Auto) 0 (0-1) % PT (9.5-12.0) sec INR (0.80-1.20) APTT (27.0-36.0) sec Sodium 144 (140-148) mmol/L Potassium 4.4 (3.6-5.2) mmol/L Chloride 106 (100-108) mmol/L Carbon Dioxide 26 (21-32) mmol/L Anion Gap 11.9 (5.0-14.0) mmol/L BUN 29 H (7-18) mg/dL Creatinine 1.6 H (0.6-1.0) mg/dL Est Cr Clr Drug Dosing 21.44 mL/min Estimated GFR (MDRD) 31 L (>60) Glucose 141 H (74-106) mg/dL POC Glucose 134 H (74-106) mg/dL Calcium 10.3 H (8.5-10.1) mg/dL Total Bilirubin 0.4 (0.2-1.0) mg/dL AST 13 L (15-37) U/L ALT 21 (12-78) U/L Alkaline Phosphatase 98 (46-116) U/L Total Protein 7.5 (6.4-8.2) g/dL Albumin 3.7 (3.4-5.0) g/dL Globulin 3.8 H (2.3-3.5) g/dL Albumin/Globulin Ratio 1.0 L (1.2-2.2) Urine Color (YELLOW) Urine Appearance (CLEAR) Urine pH (5.0-8.0) Ur Specific [place] (1.008-1.030) Urine Protein (NEGATIVE) mg/dL Urine Glucose (UA) (NEGATIVE) mg/dL Urine Ketones (NEGATIVE) mg/dL Urine Occult Blood (NEGATIVE) Urine Nitrite (NEGATIVE) Urine Bilirubin (NEGATIVE) Urine Urobilinogen (0.2-1.0) EU/dL Ur Leukocyte Esterase (NEGATIVE) Urine RBC (0-5) Urine WBC (0-5) Ur Epithelial Cells Amorphous Sediment Urine Bacteria Urine Mucus 06/06/20 06/06/20 06/06/20 Range/Units 06:21 08:44 14:05 WBC (4.5-11.0) K/uL RBC (3.30-5.50) M/uL Hgb (12.0-15.0) g/dL Hct (36.0-48.0) % MCV (80-98) fL MCH (27-31) pg MCHC (32-36) % Plt Count (150-400) K/uL Neut % (Auto) (36-66) % Lymph % (Auto) (24-44) % [place] % (Auto) (2-6) % Eos % (Auto) (2-4) % Baso % (Auto) (0-1) % PT 10.6 (9.5-12.0) sec INR 0.97 (0.80-1.20) APTT (27.0-36.0) sec Sodium (140-148) mmol/L Potassium (3.6-5.2) mmol/L Chloride (100-108) mmol/L Carbon Dioxide (21-32) mmol/L Anion Gap (5.0-14.0) mmol/L BUN (7-18) mg/dL Creatinine (0.6-1.0) mg/dL Est Cr Clr Drug Dosing mL/min Estimated GFR (MDRD) (>60) Glucose (74-106) mg/dL POC Glucose 194 H (74-106) mg/dL Calcium (8.5-10.1) mg/dL Total Bilirubin (0.2-1.0) mg/dL AST (15-37) U/L ALT (12-78) U/L Alkaline Phosphatase (46-116) U/L Total Protein (6.4-8.2) g/dL Albumin (3.4-5.0) g/dL Globulin (2.3-3.5) g/dL Albumin/Globulin Ratio (1.2-2.2) Urine Color Yellow (YELLOW) Urine Appearance Clear (CLEAR) Urine pH 7.0 (5.0-8.0) Ur Specific [place] 1.020 (1.008-1.030) Urine Protein 100 H (NEGATIVE) mg/dL Urine Glucose (UA) Negative (NEGATIVE) mg/dL Urine Ketones Negative (NEGATIVE) mg/dL Urine Occult Blood Negative (NEGATIVE) Urine Nitrite Negative (NEGATIVE) Urine Bilirubin Negative (NEGATIVE) Urine Urobilinogen 0.2 (0.2-1.0) EU/dL Ur Leukocyte Esterase Negative (NEGATIVE) Urine RBC 0-5 (0-5) Urine WBC 0-5 (0-5) Ur Epithelial Cells Few Amorphous Sediment Not seen Urine Bacteria Few Urine Mucus Not seen 06/06/20 06/06/20 Range/Units 16:05 16:28 WBC (4.5-11.0) K/uL RBC (3.30-5.50) M/uL Hgb (12.0-15.0) g/dL Hct (36.0-48.0) % MCV (80-98) fL MCH (27-31) pg MCHC (32-36) % Plt Count (150-400) K/uL Neut % (Auto) (36-66) % Lymph % (Auto) (24-44) % [place] % (Auto) (2-6) % Eos % (Auto) (2-4) % Baso % (Auto) (0-1) % PT (9.5-12.0) sec INR (0.80-1.20) APTT 155.7 H* (27.0-36.0) sec Sodium (140-148) mmol/L Potassium (3.6-5.2) mmol/L Chloride (100-108) mmol/L Carbon Dioxide (21-32) mmol/L Anion Gap (5.0-14.0) mmol/L BUN (7-18) mg/dL Creatinine (0.6-1.0) mg/dL Est Cr Clr Drug Dosing mL/min Estimated GFR (MDRD) (>60) Glucose (74-106) mg/dL POC Glucose 181 H (74-106) mg/dL Calcium (8.5-10.1) mg/dL Total Bilirubin (0.2-1.0) mg/dL AST (15-37) U/L ALT (12-78) U/L Alkaline Phosphatase (46-116) U/L Total Protein (6.4-8.2) g/dL Albumin (3.4-5.0) g/dL Globulin (2.3-3.5) g/dL Albumin/Globulin Ratio (1.2-2.2) Urine Color (YELLOW) Urine Appearance (CLEAR) Urine pH (5.0-8.0) Ur Specific [place] (1.008-1.030) Urine Protein (NEGATIVE) mg/dL Urine Glucose (UA) (NEGATIVE) mg/dL Urine Ketones (NEGATIVE) mg/dL Urine Occult Blood (NEGATIVE) Urine Nitrite (NEGATIVE) Urine Bilirubin (NEGATIVE) Urine Urobilinogen (0.2-1.0) EU/dL Ur Leukocyte Esterase (NEGATIVE) Urine RBC (0-5) Urine WBC (0-5) Ur Epithelial Cells Amorphous Sediment Urine Bacteria Urine Mucus Result Diagrams: 06/07/20 08:40 06/07/20 08:40 Sepsis Event Note - Evaluation Sepsis Screening Result: No Definite Risk - Focused Exam Vital Signs: Vital Signs Temp Pulse Resp BP Pulse Ox 06/06/20 17:00 97.4 F 14 134/53 L 94 L 06/06/20 13:31 97.3 F 21 H 122/56 L 94 L 06/06/20 09:53 98 F 17 152/58 H 97 06/06/20 08:40 63 19 149/96 H 95 06/06/20 08:20 66 16 142/64 H 94 L 06/06/20 07:59 53 L 20 127/59 L 93 L 06/06/20 07:40 59 L 13 141/63 H 95 Problem List Initiated/Reviewed/Updated: Yes Orders Last 24hrs: Active Orders 24 hr Category Date Time Status Patient Status [ADT] Routine ADT 06/06/20 08:44 Active Cardiac Monitoring [RC] Q6H Care 06/06/20 08:46 Active EKG Documentation Completion [RC] ASDIRECTED Care 06/06/20 05:36 Active Height and Weight [RC] DAILY Care 06/06/20 08:44 Active Intake and Output [RC] QSHIFT Care 06/06/20 08:46 Active Oxygen Therapy [RC] PRN Care 06/06/20 08:44 Active VTE/DVT Education [RC] Per Unit Routine Care 06/06/20 08:44 Active Vital Signs [RC] Q4H Care 06/06/20 08:44 Active Consistent Carbohydrate Diet [DIET] Diet 06/06/20 Lunch Active Ang Head wo Cont [MR] Stat Exams 06/07/20 10:30 Ordered PTT,PARTIAL THROMBOPLSTIN TIME [COAG] Routine Lab 06/06/20 21:00 Ordered Acetaminophen [TylenoL] Med 06/06/20 11:38 Active 650 mg PO Q6H PRN Calcium Carbonate/Vitamin D3 [Caltrate 600+D 1500 MG- Med 06/07/20 09:00 Active 400 Units] 1 tab PO MoWeFr@0900 Cholecalciferol (Vitamin D3) [Vitamin D3] Med 06/07/20 09:00 Active 25 mcg PO DAILY Dextrose 50% in Water Med 06/06/20 11:38 Active 50 ml IVPUSH ASDIRECTED PRN Glucagon,Human Recombinant [GlucaGen] Med 06/06/20 11:38 Active 1 mg IM ASDIRECTED PRN Heparin Sodium/D5W [Heparin 25,000 Units in D5W 500 ML] Med 06/06/20 14:30 Active 25,000 units in 500 ml IV TITRATE Insulin Glarg,Human.Rec.Analog [LantUS Solostar] Med 06/06/20 21:00 Active 20 units SUBCUT BID Insulin Lispro [HumaLOG] Med 06/06/20 13:25 Active 0 unit SUBCUT QID PRN Losartan [Cozaar] Med 06/07/20 09:00 Active 100 mg PO DAILY Lovastatin [Mevacor] Med 06/06/20 21:00 Active 40 mg PO BEDTIME Metoprolol Tartrate [Lopressor] Med 06/07/20 09:00 Active 100 mg PO DAILY Multivitamins w-Iron/Ca/FA/Min [Thera M Plus] Med 06/07/20 09:00 Active 1 tab PO DAILY Triamcinolone Acetonide [Triamcinolone Acetonide 0.1% Med 06/06/20 21:00 Active Oint] 0 gm TOP BID amLODIPine [Norvasc] Med 06/07/20 09:00 Active 10 mg PO DAILY Saline Lock Insert [OM.PC] Routine Oth 06/06/20 08:44 Ordered Resuscitation Status Routine Resus Stat 06/06/20 08:44 Ordered EKG 12 Lead [EK] Routine Ther 06/06/20 05:36 Ordered Medication Orders Acetaminophen (Acetaminophen 325 Mg Tab) 650 mg PO Q6H PRN PRN Reason: PAIN Amlodipine Besylate (Amlodipine 5 Mg Tab) 10 mg PO DAILY NAA Calcium Carbonate (Calcium Carbonate/Vitamin D3 1500 Mg-400 Units Tab) 1 tab PO MoWeFr@0900 NAA Cholecalciferol (Cholecalciferol (Vitamin D3) 25 Mcg Tab) 25 mcg PO DAILY NAA Dextrose/Water (50% Dextrose In Water 50 Ml Syringe) 50 ml IVPUSH ASDIRECTED PRN PRN Reason: Hypoglycemia Glucagon (Glucagon,Human Recombinant 1 Mg Vial) 1 mg IM ASDIRECTED PRN PRN Reason: Hypoglycemia Heparin Sodium/Dextrose (Heparin 25,000 Units In D5w 500 Ml) 25,000 units in 500 mls @ 21.065 mls/hr IV TITRATE NAA; Protocol Last Titration: 06/06/20 18:12 Dose: 15 units/kg/hr, 17.554 mls/hr Documented by: PHILIPPE Cosigned by: LYNDSEY Titration: 06/06/20 15:56 Dose: 0 units/kg/hr, 0 mls/hr Documented by: PHILIPPE Cosigned by: LETITIA Admin: 06/06/20 15:22 Dose: 18 units/kg/hr, 21.065 mls/hr Documented by: PHILIPPE Cosigned by: LETITIA Insulin Glargine (Insulin Glargine,Human Rec. Analog 100 Units/Ml 3 Ml Pen) 20 units SUBCUT BID NAA Insulin Human Lispro (Insulin Lispro 100 Unit/Ml 3 Ml Kwikpen) 0 unit SUBCUT QID PRN; Protocol PRN Reason: MEDIUM CORRECTIONAL DOSING Last Admin: 06/06/20 16:32 Dose: 2 units Documented by: PHILIPPE Cosigned by: LETITIA Admin: 06/06/20 14:10 Dose: 2 units Documented by: PHILIPPE Cosigned by: LETITIA Losartan Potassium (Losartan 50 Mg Tab) 100 mg PO DAILY NAA Lovastatin (Lovastatin 20 Mg Tab) 40 mg PO BEDTIME NAA Metoprolol Tartrate (Metoprolol Tartrate 50 Mg Tab) 100 mg PO DAILY NAA Multivitamins/Minerals (Multivitamins With Iron/Calcium/Folic Acid/Minerals Tab) 1 tab PO DAILY NAA Triamcinolone Acetonide (Triamcinolone Acetonide 0.1% Oint 15 Gm Tube) 0 gm TOP BID NAA Assessment/Plan Comment:: Assessment/Plan: #1. CVA: Weakness right side with weakness and slurred speech. CT done of the head which showed no acute findings. I have admitted to the hospital and started on Heparin and will get a MR of the head as soon as possible. #2. DM II: Will monitor and give meds as needed. #3. HTN: Will continue with meds and adjust as needed. #4. HLD: Continue with meds. #5. CRF: Monitor #6. ASHD: Stable #7. S/P Ca of left breast with mastectomy: - Mortality Measure Prognosis:: Good
[2020-06-06] MEDS: Insulin Glargine,Human Rec. Analog 100 Units/ML 3 ML Pen SUBCUT SCH (21:47)
[2020-06-06] MEDS: Triamcinolone Acetonide 0.1% Oint 15 GM Tube TOP SCH (22:11)
[2020-06-07] MEDS ORDERED: Metoprolol Tartrate 50 MG Tab PO SCH (09:00)
[2020-06-07] MEDS ORDERED: Non-Formulary Medication 1 Each (Insulin Aspart [Novolog Flexpen] 100 UNIT/ML Ml) SQ SCH (09:00)
[2020-06-07] MEDS: Insulin Glargine,Human Rec. Analog 100 Units/ML 3 ML Pen SUBCUT SCH ×2 (09:48→20:37)
[2020-06-07] MEDS: Losartan 50 MG Tab PO SCH (09:49)
[2020-06-07] MEDS: Multivitamins with Iron/Calcium/Folic Acid/Minerals Tab PO SCH (09:49)
[2020-06-07] MEDS: amLODIPine 5 MG Tab PO SCH (09:50)
[2020-06-07] MEDS: Cholecalciferol (Vitamin D3) 25 MCG Tab PO SCH (09:50)
[2020-06-07] MEDS: Calcium Carbonate/Vitamin D3 1500 MG-400 Units Tab PO SCH (09:50)
[2020-06-07] MEDS: Triamcinolone Acetonide 0.1% Oint 15 GM Tube TOP SCH ×2 (09:50→20:41)
--- NOTE | 2020-06-07 12:40 | MR ---
Brain wo Cont CLINICAL HISTORY: TIA COMPARISON: TECHNIQUE: Multiple axial, sagittal, and coronal images were obtained on a 1.5 T magnet with multiweighted sequences, FLAIR, and diffusion imaging without contrast. FINDINGS: There is a focus of restricted diffusion in the left bette this measures 1.1 x 0.8 cm. This shows mildly increased signal on T2 and FLAIR images. There are also numerous T2 hyperintensities in the periventricular and subcortical white matter. There is no hemmorhage or extraaxial collection. The basal cisterns and sulci over the convexities are prominent. The ventricles are mildly prominent. IMPRESSION: 1 cm focus of restricted diffusion in the left portion of the mid bette. This likely represents a focus of acute or subacute ischemic infarct. Focal demyelinating white matter lesion is not excluded. Postcontrast MR should be considered to exclude a neoplastic lesion There are scattered T2 hyperintensities in these periventricular and subcortical white matter. This may represent some chronic ischemic microvascular change. Demyelinating process is felt less likely but not excluded Age-related atrophy
[2020-06-07] MEDS ORDERED: Gadoteridol 279.3 MG/ML 15 ML SDV IV SCH (14:00)
--- NOTE | 2020-06-07 14:48 | MR ---
Brain w Cont CLINICAL HISTORY: TIA COMPARISON: Noncontrast study earlier same day TECHNIQUE: Multiple pulse sequences were obtained through the brain in the axial, coronal, and sagittal planes following IV contrast infusion of gadolinium-based contrast. All images were obtained on a 1.5 Annika unit. FINDINGS: Postcontrast images show low signal T1 lesion in the misael to the left. This does not show enhancement postcontrast. The periventricular and subcortical foci described on noncontrast study do not enhance. There is no abnormal vascular pattern IMPRESSION: No enhancing lesions following contrast injection. Misael lesion is most likely an acute or subacute ischemic infarct Periventricular lesions are likely chronic ischemic microvascular change
[2020-06-07] MEDS: Insulin Lispro 100 Unit/ML 3 ML KwikPen SUBCUT PRN ×2 (17:05→20:36)
[2020-06-07] MEDS ORDERED: Heparin Sodium 5,000 Units/ML Vial IVPUSH ONE (17:15)
[2020-06-07] MEDS: Heparin Sodium/D5W 25,000 UNITS/500 ML BAG IV SCH (20:34)
[2020-06-08] MEDS: Insulin Glargine,Human Rec. Analog 100 Units/ML 3 ML Pen SUBCUT SCH ×2 (08:28→21:32)
[2020-06-08] MEDS: Insulin Lispro 100 Unit/ML 3 ML KwikPen SUBCUT PRN ×4 (08:30→21:35)
[2020-06-08] MEDS: Multivitamins with Iron/Calcium/Folic Acid/Minerals Tab PO SCH (08:43)
[2020-06-08] MEDS: Cholecalciferol (Vitamin D3) 25 MCG Tab PO SCH (08:45)
[2020-06-08] MEDS: Triamcinolone Acetonide 0.1% Oint 15 GM Tube TOP SCH ×2 (08:45→21:33)
[2020-06-08] MEDS: Carvedilol 3.125 MG Tab PO SCH ×2 (09:11→21:32)
[2020-06-08] MEDS: Losartan 50 MG Tab PO SCH (09:12)
[2020-06-08] MEDS: amLODIPine 5 MG Tab PO SCH (09:12)
[2020-06-08] MEDS ORDERED: Aluminum Hydroxide/Magnesium Hydroxide/Simethicone Susp 30 ML Cup PO PRN (17:42)
--- NOTE | 2020-06-08 21:41 | PCM.PN ---
- General Info Date of Service: 06/08/20 Functional Status: Reports: Pain Controlled - Review of Systems General: Reports: Weakness HEENT: Reports: No Symptoms Pulmonary: Reports: No Symptoms Cardiovascular: Reports: No Symptoms Gastrointestinal: Reports: No Symptoms Genitourinary: Reports: No Symptoms Musculoskeletal: Reports: No Symptoms Skin: Reports: No Symptoms Neurological: Reports: Trouble Speaking, Difficulty Walking, Weakness Psychiatric: Reports: No Symptoms - Patient Data Vitals - Most Recent: Last Vital Signs Temp 98.5 F 06/08/20 20:08 Pulse 99 06/08/20 21:23 Resp 18 06/08/20 20:08 BP 137/43 L 06/08/20 20:08 Pulse Ox 97 06/08/20 20:08 Weight - Most Recent: 130 lb 3.2 oz I&O - Last 24 Hours: Intake & Output 06/08/20 06/08/20 06/08/20 06:59 14:59 22:59 Output Total 350 300 Balance -350 -300 Lab Results Last 24 Hours: Laboratory Results - last 24 hr 06/07/20 06/08/20 06/08/20 Range/Units 22:58 05:00 08:17 APTT 70.7 H 74.4 H (27.0-36.0) sec POC Glucose 128 H (74-106) mg/dL 06/08/20 06/08/20 06/08/20 Range/Units 11:41 12:00 17:28 APTT 58.4 H (27.0-36.0) sec POC Glucose 174 H 274 H (74-106) mg/dL 06/08/20 06/08/20 06/08/20 Range/Units 17:32 18:00 20:54 APTT 49.4 H (27.0-36.0) sec POC Glucose 274 H 292 H (74-106) mg/dL 06/08/20 Range/Units 21:00 APTT (27.0-36.0) sec POC Glucose 292 H (74-106) mg/dL Med Orders - Current: Current Medications Acetaminophen (Acetaminophen 325 Mg Tab) 650 mg PO Q6H PRN PRN Reason: PAIN Al Hydroxide/Mg Hydroxide (Aluminum Hydroxide/Magnesium Hydroxide/Simethicone Susp 30 Ml Cup) 30 ml PO Q4H PRN PRN Reason: Heartburn Last Admin: 06/08/20 17:54 Dose: 30 ml Documented by: Amlodipine Besylate (Amlodipine 5 Mg Tab) 10 mg PO DAILY [facility] Last Admin: 06/08/20 09:12 Dose: 10 mg Documented by: Calcium Carbonate (Calcium Carbonate/Vitamin D3 1500 Mg-400 Units Tab) 1 tab PO MoWeFr@0900 [facility] Last Admin: 06/07/20 09:50 Dose: 1 tab Documented by: Carvedilol (Carvedilol 3.125 Mg Tab) 3.125 mg PO BID [facility] Last Admin: 06/08/20 09:11 Dose: 3.125 mg Documented by: Cholecalciferol (Cholecalciferol (Vitamin D3) 25 Mcg Tab) 25 mcg PO DAILY [facility] Last Admin: 06/08/20 08:45 Dose: 25 mcg Documented by: Dextrose/Water (50% Dextrose In Water 50 Ml Syringe) 50 ml IVPUSH ASDIRECTED PRN PRN Reason: Hypoglycemia Glucagon (Glucagon,Human Recombinant 1 Mg Vial) 1 mg IM ASDIRECTED PRN PRN Reason: Hypoglycemia Heparin Sodium/Dextrose (Heparin 25,000 Units In D5w 500 Ml) 25,000 units in 500 mls @ 21.065 mls/hr IV TITRATE [facility]; Protocol Last Titration: 06/08/20 06:04 Dose: 15 units/kg/hr, 17.554 mls/hr Documented by: Insulin Glargine (Insulin Glargine,Human Rec. Analog 100 Units/Ml 3 Ml Pen) 20 units SUBCUT BID [facility] Last Admin: 06/08/20 08:28 Dose: 20 units Documented by: Insulin Human Lispro (Insulin Lispro 100 Unit/Ml 3 Ml Kwikpen) 0 unit SUBCUT QID PRN; Protocol PRN Reason: MEDIUM CORRECTIONAL DOSING Last Admin: 06/08/20 17:36 Dose: 5 units Documented by: Losartan Potassium (Losartan 50 Mg Tab) 100 mg PO DAILY [facility] Last Admin: 06/08/20 09:12 Dose: 100 mg Documented by: Lovastatin (Lovastatin 20 Mg Tab) 40 mg PO BEDTIME [facility] Last Admin: 06/07/20 20:40 Dose: 40 mg Documented by: Multivitamins/Minerals (Multivitamins With Iron/Calcium/Folic Acid/Minerals Tab) 1 tab PO DAILY [facility] Last Admin: 06/08/20 08:43 Dose: 1 tab Documented by: Pantoprazole Sodium (Pantoprazole 40 Mg Tab.Cr) 40 mg PO ACBREAKFAST [facility] Triamcinolone Acetonide (Triamcinolone Acetonide 0.1% Oint 15 Gm Tube) 0 gm TOP BID [facility] Last Admin: 06/08/20 08:45 Dose: Not Given Documented by: Discontinued Medications Gadoteridol (Gadoteridol 279.3 Mg/Ml 15 Ml Sdv) 15 ml IV .A DIRECTED [facility] Last Admin: 06/07/20 14:05 Dose: 15 ml Documented by: Heparin Sodium (Porcine) (Heparin Sodium 5,000 Units/Ml Vial) 4,700 units IVPUSH .BOLUS ONE Stop: 06/06/20 14:46 Last Admin: 06/06/20 15:20 Dose: 4,700 units Documented by: Heparin Sodium (Porcine) (Heparin Sodium 5,000 Units/Ml Vial) 1,170 units IVPUSH .BOLUS ONE Stop: 06/06/20 22:04 Last Admin: 06/06/20 22:13 Dose: 1,170 units Documented by: Heparin Sodium (Porcine) (Heparin Sodium 5,000 Units/Ml Vial) 1,170 units IVPUSH .BOLUS ONE Stop: 06/07/20 17:16 Last Admin: 06/07/20 17:30 Dose: 1,170 units Documented by: Metoprolol Tartrate (Metoprolol Tartrate 50 Mg Tab) 100 mg PO DAILY [facility] - Exam General: Alert, Oriented HEENT: Pupils Equal, Pupils Reactive, EOMI, Mucous Membr. Moist/[place]: Supple Lungs: Clear to Auscultation, Normal Respiratory Effort Cardiovascular: Irregular Rhythm GI/Abdominal Exam: Normal Bowel Sounds, Soft, Non-Tender, No Organomegaly, No Distention, No Abnormal Bruit, No Mass, Pelvis Stable Back Exam: Normal Inspection, Full Range of Motion Extremities: Normal Inspection, Normal Range of Motion, Non-Tender, No Pedal Edema, Normal Capillary Refill Peripheral Pulses: 1+: Radial (L), Radial (R) Skin: Warm, Dry, Intact Neurological: Other (Weskness right side) Psy/Mental Status: Alert, Normal Affect, Normal Mood - Patient Data Lab Results Last 24 hrs: Laboratory Results - last 24 hr 06/07/20 06/08/20 06/08/20 Range/Units 22:58 05:00 08:17 APTT 70.7 H 74.4 H (27.0-36.0) sec POC Glucose 128 H (74-106) mg/dL 06/08/20 06/08/20 06/08/20 Range/Units 11:41 12:00 17:28 APTT 58.4 H (27.0-36.0) sec POC Glucose 174 H 274 H (74-106) mg/dL 06/08/20 06/08/20 06/08/20 Range/Units 17:32 18:00 20:54 APTT 49.4 H (27.0-36.0) sec POC Glucose 274 H 292 H (74-106) mg/dL 06/08/20 Range/Units 21:00 APTT (27.0-36.0) sec POC Glucose 292 H (74-106) mg/dL Result Diagrams: 06/09/20 05:57 06/09/20 05:57 Sepsis Event Note - Evaluation Sepsis Screening Result: No Definite Risk - Focused Exam Vital Signs: Vital Signs Temp Pulse Resp BP Pulse Ox 06/08/20 21:23 99 06/08/20 20:08 98.5 F 50 L 18 137/43 L 97 06/08/20 16:31 99.0 F 51 L 16 144/47 H 98 06/08/20 15:59 97.8 F 97 16 147/62 H 96 06/08/20 15:27 100 95 06/08/20 12:00 98.1 F 94 16 154/48 H 97 - Problem List Review Problem List Initiated/Reviewed/Updated: Yes - My Orders Last 24 Hours: My Active Orders 06/08/20 08:57 Consult to Physical Therapy [PT Evaluation and Treatment] [CONS] Routine 06/08/20 09:00 carvediloL [Coreg] 3.125 mg PO BID 06/08/20 10:49 Consult to Occupational Therapy [OT Evaluation and Treatment] [CONS] Routine 06/08/20 17:42 Alum Hydrox/Mag Hydrox/Simeth [Mag-Al Plus] 30 ml PO Q4H PRN 06/08/20 21:00 Blood Glucose Check, Bedside [RC] QIDACANDBED 06/09/20 00:00 aPTT [PTT,PARTIAL THROMBOPLSTIN TIME] [COAG] Routine 06/09/20 07:30 GLUCOSE POC LAB TO COLLECT JPM [POC] QIDACANDBED Pantoprazole [ProTONIX] 40 mg PO ACBREAKFAST 06/09/20 11:30 GLUCOSE POC LAB TO COLLECT JPM [POC] QIDACANDBED 06/09/20 16:30 GLUCOSE POC LAB TO COLLECT JPM [POC] QIDACANDBED 06/09/20 21:00 GLUCOSE POC LAB TO COLLECT JPM [POC] QIDACANDBED 06/10/20 07:30 GLUCOSE POC LAB TO COLLECT JPM [POC] QIDACANDBED 06/10/20 11:30 GLUCOSE POC LAB TO COLLECT JPM [POC] QIDACANDBED 06/10/20 16:30 GLUCOSE POC LAB TO COLLECT JPM [POC] QIDACANDBED 06/10/20 21:00 GLUCOSE POC LAB TO COLLECT JPM [POC] QIDACANDBED 06/11/20 07:30 GLUCOSE POC LAB TO COLLECT JPM [POC] QIDACANDBED 06/11/20 11:30 GLUCOSE POC LAB TO COLLECT JPM [POC] QIDACANDBED 06/11/20 16:30 GLUCOSE POC LAB TO COLLECT JPM [POC] QIDACANDBED 06/11/20 21:00 GLUCOSE POC LAB TO COLLECT JPM [POC] QIDACANDBED 06/12/20 07:30 GLUCOSE POC LAB TO COLLECT JPM [POC] QIDACANDBED 06/12/20 11:30 GLUCOSE POC LAB TO COLLECT JPM [POC] QIDACANDBED 06/12/20 16:30 GLUCOSE POC LAB TO COLLECT JPM [POC] QIDACANDBED 06/12/20 21:00 GLUCOSE POC LAB TO COLLECT JPM [POC] QIDACANDBED 06/13/20 07:30 GLUCOSE POC LAB TO COLLECT JPM [POC] QIDACANDBED 06/13/20 11:30 GLUCOSE POC LAB TO COLLECT JPM [POC] QIDACANDBED 06/13/20 16:30 GLUCOSE POC LAB TO COLLECT JPM [POC] QIDACANDBED - Plan Plan:: Assessment/Plan: #1. CVA: Weakness right side with weakness and slurred speech. MRI did show a area of concern. MRI with contrast did not show a area of concern. Will continue with Heparin and DC tomorrow. Heart shows bigeminal rhythm PAC's. Have started OT/PT today. Will consider a loop recorder soon. #2. DM II: Will continue to monitor. #3. HTN: Stable.. EF is >50%. #4. HLD: Continue with meds. #5. CRF: Monitor #6. ASHD: Stable #7. S/P Ca of left breast with mastectomy:
[2020-06-09] MEDS: Heparin Sodium/D5W 25,000 UNITS/500 ML BAG IV SCH (00:07)
[2020-06-09] MEDS ORDERED: Pantoprazole 40 MG Tab.CR PO SCH (07:30)
[2020-06-09 07:38] VITALS: BP 135/67
[2020-06-09] MEDS: Losartan 50 MG Tab PO SCH (08:37)
[2020-06-09] MEDS: Multivitamins with Iron/Calcium/Folic Acid/Minerals Tab PO SCH (08:37)
[2020-06-09] MEDS: amLODIPine 5 MG Tab PO SCH (08:37)
[2020-06-09] MEDS: Calcium Carbonate/Vitamin D3 1500 MG-400 Units Tab PO SCH (08:37)
[2020-06-09] MEDS: Triamcinolone Acetonide 0.1% Oint 15 GM Tube TOP SCH (08:38)
[2020-06-09] MEDS: Carvedilol 3.125 MG Tab PO SCH (08:38)
[2020-06-09] MEDS: Cholecalciferol (Vitamin D3) 25 MCG Tab PO SCH (08:38)
[2020-06-09 08:39] VITALS: PULSE 43
[2020-06-09] MEDS: Insulin Glargine,Human Rec. Analog 100 Units/ML 3 ML Pen SUBCUT SCH (08:40)
[2020-06-09] MEDS: Insulin Lispro 100 Unit/ML 3 ML KwikPen SUBCUT PRN ×2 (08:40→11:47)
[2020-06-09] MEDS ORDERED: Aspirin 81 MG Tab.EC PO SCH (09:00)
--- NOTE | 2020-06-09 11:13 | PCM.PN ---
- General Info Date of Service: 06/09/20 Subjective Update: She states she's feeling better. She states that she is talking almost normal at the present time. - Review of Systems General: Reports: Weakness HEENT: Reports: No Symptoms Pulmonary: Reports: No Symptoms Cardiovascular: Reports: No Symptoms Gastrointestinal: Reports: No Symptoms Genitourinary: Reports: No Symptoms Musculoskeletal: Reports: Other (She still has mild weakness in the right arm.) Skin: Reports: No Symptoms Neurological: Reports: Weakness Psychiatric: Reports: No Symptoms - Patient Data Vitals - Most Recent: Last Vital Signs Temp 98.1 F 06/09/20 07:10 Pulse 43 L 06/09/20 08:38 Resp 16 06/09/20 07:10 BP 135/67 06/09/20 08:38 Pulse Ox 96 06/09/20 08:42 Weight - Most Recent: 130 lb 3.2 oz I&O - Last 24 Hours: Intake & Output 06/08/20 06/09/20 06/09/20 22:59 06:59 14:59 Intake Total 1252 Output Total 300 Balance -300 1252 Lab Results Last 24 Hours: Laboratory Results - last 24 hr 06/08/20 06/08/20 06/08/20 Range/Units 08:17 11:41 12:00 WBC (4.5-11.0) K/uL RBC (3.30-5.50) M/uL Hgb (12.0-15.0) g/dL Hct (36.0-48.0) % MCV (80-98) fL MCH (27-31) pg MCHC (32-36) % Plt Count (150-400) K/uL Neut % (Auto) (36-66) % Lymph % (Auto) (24-44) % [place] % (Auto) (2-6) % Eos % (Auto) (2-4) % Baso % (Auto) (0-1) % APTT 58.4 H (27.0-36.0) sec Sodium (140-148) mmol/L Potassium (3.6-5.2) mmol/L Chloride (100-108) mmol/L Carbon Dioxide (21-32) mmol/L Anion Gap (5.0-14.0) mmol/L BUN (7-18) mg/dL Creatinine (0.6-1.0) mg/dL Est Cr Clr Drug Dosing mL/min Estimated GFR (MDRD) (>60) Glucose (74-106) mg/dL POC Glucose 128 H 174 H (74-106) mg/dL Calcium (8.5-10.1) mg/dL Total Bilirubin (0.2-1.0) mg/dL AST (15-37) U/L ALT (12-78) U/L Alkaline Phosphatase (46-116) U/L Total Protein (6.4-8.2) g/dL Albumin (3.4-5.0) g/dL Globulin (2.3-3.5) g/dL Albumin/Globulin Ratio (1.2-2.2) 06/08/20 06/08/20 06/08/20 Range/Units 17:28 17:32 18:00 WBC (4.5-11.0) K/uL RBC (3.30-5.50) M/uL Hgb (12.0-15.0) g/dL Hct (36.0-48.0) % MCV (80-98) fL MCH (27-31) pg MCHC (32-36) % Plt Count (150-400) K/uL Neut % (Auto) (36-66) % Lymph % (Auto) (24-44) % [place] % (Auto) (2-6) % Eos % (Auto) (2-4) % Baso % (Auto) (0-1) % APTT 49.4 H (27.0-36.0) sec Sodium (140-148) mmol/L Potassium (3.6-5.2) mmol/L Chloride (100-108) mmol/L Carbon Dioxide (21-32) mmol/L Anion Gap (5.0-14.0) mmol/L BUN (7-18) mg/dL Creatinine (0.6-1.0) mg/dL Est Cr Clr Drug Dosing mL/min Estimated GFR (MDRD) (>60) Glucose (74-106) mg/dL POC Glucose 274 H Cancelled (74-106) mg/dL Calcium (8.5-10.1) mg/dL Total Bilirubin (0.2-1.0) mg/dL AST (15-37) U/L ALT (12-78) U/L Alkaline Phosphatase (46-116) U/L Total Protein (6.4-8.2) g/dL Albumin (3.4-5.0) g/dL Globulin (2.3-3.5) g/dL Albumin/Globulin Ratio (1.2-2.2) 06/08/20 06/08/20 06/09/20 Range/Units 20:54 21:00 00:00 WBC (4.5-11.0) K/uL RBC (3.30-5.50) M/uL Hgb (12.0-15.0) g/dL Hct (36.0-48.0) % MCV (80-98) fL MCH (27-31) pg MCHC (32-36) % Plt Count (150-400) K/uL Neut % (Auto) (36-66) % Lymph % (Auto) (24-44) % [place] % (Auto) (2-6) % Eos % (Auto) (2-4) % Baso % (Auto) (0-1) % APTT 51.8 H (27.0-36.0) sec Sodium (140-148) mmol/L Potassium (3.6-5.2) mmol/L Chloride (100-108) mmol/L Carbon Dioxide (21-32) mmol/L Anion Gap (5.0-14.0) mmol/L BUN (7-18) mg/dL Creatinine (0.6-1.0) mg/dL Est Cr Clr Drug Dosing mL/min Estimated GFR (MDRD) (>60) Glucose (74-106) mg/dL POC Glucose 292 H Cancelled (74-106) mg/dL Calcium (8.5-10.1) mg/dL Total Bilirubin (0.2-1.0) mg/dL AST (15-37) U/L ALT (12-78) U/L Alkaline Phosphatase (46-116) U/L Total Protein (6.4-8.2) g/dL Albumin (3.4-5.0) g/dL Globulin (2.3-3.5) g/dL Albumin/Globulin Ratio (1.2-2.2) 06/09/20 06/09/20 06/09/20 Range/Units 05:57 05:57 05:57 WBC 8.7 (4.5-11.0) K/uL RBC 3.66 (3.30-5.50) M/uL Hgb 11.1 L D (12.0-15.0) g/dL Hct 34.5 L (36.0-48.0) % MCV 94 (80-98) fL MCH 30 (27-31) pg MCHC 32 (32-36) % Plt Count 212 (150-400) K/uL Neut % (Auto) 64 (36-66) % Lymph % (Auto) 18 L (24-44) % [place] % (Auto) 14 H (2-6) % Eos % (Auto) 4 (2-4) % Baso % (Auto) 0 (0-1) % APTT 51.6 H (27.0-36.0) sec Sodium 145 (140-148) mmol/L Potassium 4.1 (3.6-5.2) mmol/L Chloride 109 H (100-108) mmol/L Carbon Dioxide 25 (21-32) mmol/L Anion Gap 15.1 H (5.0-14.0) mmol/L BUN 36 H (7-18) mg/dL Creatinine 1.6 H (0.6-1.0) mg/dL Est Cr Clr Drug Dosing 21.44 mL/min Estimated GFR (MDRD) 31 L (>60) Glucose 132 H (74-106) mg/dL POC Glucose (74-106) mg/dL Calcium 9.7 (8.5-10.1) mg/dL Total Bilirubin 0.4 (0.2-1.0) mg/dL AST 12 L (15-37) U/L ALT 20 (12-78) U/L Alkaline Phosphatase 75 (46-116) U/L Total Protein 6.3 L (6.4-8.2) g/dL Albumin 2.9 L (3.4-5.0) g/dL Globulin 3.4 (2.3-3.5) g/dL Albumin/Globulin Ratio 0.9 L (1.2-2.2) 06/09/20 Range/Units 07:08 WBC (4.5-11.0) K/uL RBC (3.30-5.50) M/uL Hgb (12.0-15.0) g/dL Hct (36.0-48.0) % MCV (80-98) fL MCH (27-31) pg MCHC (32-36) % Plt Count (150-400) K/uL Neut % (Auto) (36-66) % Lymph % (Auto) (24-44) % [place] % (Auto) (2-6) % Eos % (Auto) (2-4) % Baso % (Auto) (0-1) % APTT (27.0-36.0) sec Sodium (140-148) mmol/L Potassium (3.6-5.2) mmol/L Chloride (100-108) mmol/L Carbon Dioxide (21-32) mmol/L Anion Gap (5.0-14.0) mmol/L BUN (7-18) mg/dL Creatinine (0.6-1.0) mg/dL Est Cr Clr Drug Dosing mL/min Estimated GFR (MDRD) (>60) Glucose (74-106) mg/dL POC Glucose 124 H (74-106) mg/dL Calcium (8.5-10.1) mg/dL Total Bilirubin (0.2-1.0) mg/dL AST (15-37) U/L ALT (12-78) U/L Alkaline Phosphatase (46-116) U/L Total Protein (6.4-8.2) g/dL Albumin (3.4-5.0) g/dL Globulin (2.3-3.5) g/dL Albumin/Globulin Ratio (1.2-2.2) Med Orders - Current: Current Medications Acetaminophen (Acetaminophen 325 Mg Tab) 650 mg PO Q6H PRN PRN Reason: PAIN Al Hydroxide/Mg Hydroxide (Aluminum Hydroxide/Magnesium Hydroxide/Simethicone Susp 30 Ml Cup) 30 ml PO Q4H PRN PRN Reason: Heartburn Last Admin: 06/08/20 17:54 Dose: 30 ml Documented by: Amlodipine Besylate (Amlodipine 5 Mg Tab) 10 mg PO DAILY [facility] Last Admin: 06/09/20 08:37 Dose: 10 mg Documented by: Aspirin (Aspirin 81 Mg Tab.Ec) 81 mg PO DAILY [facility] Last Admin: 06/09/20 08:37 Dose: 81 mg Documented by: Calcium Carbonate (Calcium Carbonate/Vitamin D3 1500 Mg-400 Units Tab) 1 tab PO MoWeFr@0900 [facility] Last Admin: 06/09/20 08:37 Dose: 1 tab Documented by: Carvedilol (Carvedilol 3.125 Mg Tab) 3.125 mg PO BID [facility] Last Admin: 06/09/20 08:38 Dose: 3.125 mg Documented by: Cholecalciferol (Cholecalciferol (Vitamin D3) 25 Mcg Tab) 25 mcg PO DAILY [facility] Last Admin: 06/09/20 08:38 Dose: 25 mcg Documented by: Dextrose/Water (50% Dextrose In Water 50 Ml Syringe) 50 ml IVPUSH ASDIRECTED PRN PRN Reason: Hypoglycemia Glucagon (Glucagon,Human Recombinant 1 Mg Vial) 1 mg IM ASDIRECTED PRN PRN Reason: Hypoglycemia Insulin Glargine (Insulin Glargine,Human Rec. Analog 100 Units/Ml 3 Ml Pen) 20 units SUBCUT BID [facility] Last Admin: 06/09/20 08:40 Dose: 20 units Documented by: Insulin Human Lispro (Insulin Lispro 100 Unit/Ml 3 Ml Kwikpen) 0 unit SUBCUT QID PRN; Protocol PRN Reason: MEDIUM CORRECTIONAL DOSING Last Admin: 06/09/20 08:40 Dose: 1 units Documented by: Losartan Potassium (Losartan 50 Mg Tab) 100 mg PO DAILY [facility] Last Admin: 06/09/20 08:37 Dose: 100 mg Documented by: Lovastatin (Lovastatin 20 Mg Tab) 40 mg PO BEDTIME [facility] Last Admin: 06/08/20 21:33 Dose: 40 mg Documented by: Multivitamins/Minerals (Multivitamins With Iron/Calcium/Folic Acid/Minerals Tab) 1 tab PO DAILY [facility] Last Admin: 06/09/20 08:37 Dose: 1 tab Documented by: Pantoprazole Sodium (Pantoprazole 40 Mg Tab.Cr) 40 mg PO ACBREAKFAST [facility] Last Admin: 06/09/20 07:35 Dose: 40 mg Documented by: Triamcinolone Acetonide (Triamcinolone Acetonide 0.1% Oint 15 Gm Tube) 0 gm TOP BID [facility] Last Admin: 06/09/20 08:38 Dose: Not Given Documented by: Discontinued Medications Gadoteridol (Gadoteridol 279.3 Mg/Ml 15 Ml Sdv) 15 ml IV .A DIRECTED [facility] Last Admin: 06/07/20 14:05 Dose: 15 ml Documented by: Heparin Sodium (Porcine) (Heparin Sodium 5,000 Units/Ml Vial) 4,700 units IVPUSH .BOLUS ONE Stop: 06/06/20 14:46 Last Admin: 06/06/20 15:20 Dose: 4,700 units Documented by: Heparin Sodium (Porcine) (Heparin Sodium 5,000 Units/Ml Vial) 1,170 units IVPUSH .BOLUS ONE Stop: 06/06/20 22:04 Last Admin: 06/06/20 22:13 Dose: 1,170 units Documented by: Heparin Sodium (Porcine) (Heparin Sodium 5,000 Units/Ml Vial) 1,170 units IVPUSH .BOLUS ONE Stop: 06/07/20 17:16 Last Admin: 06/07/20 17:30 Dose: 1,170 units Documented by: Heparin Sodium/Dextrose (Heparin 25,000 Units In D5w 500 Ml) 25,000 units in 500 mls @ 21.065 mls/hr IV TITRATE NAA; Protocol Last Admin: 06/09/20 00:07 Dose: 15 units/kg/hr, 17.554 mls/hr Documented by: Metoprolol Tartrate (Metoprolol Tartrate 50 Mg Tab) 100 mg PO DAILY NAA - Exam General: Alert, Oriented HEENT: Pupils Equal, Pupils Reactive, EOMI, Mucous Membr. Moist/[place] Neck: Supple Lungs: Clear to Auscultation, Normal Respiratory Effort Cardiovascular: Regular Rate GI/Abdominal Exam: Normal Bowel Sounds, Soft, Non-Tender, No Organomegaly, No Distention, No Abnormal Bruit, No Mass, Pelvis Stable Extremities: Other (mild weakness left arm/hand) Peripheral Pulses: 1+: Radial (L), Radial (R) - Patient Data Lab Results Last 24 hrs: Laboratory Results - last 24 hr 06/08/20 06/08/20 06/08/20 Range/Units 08:17 11:41 12:00 WBC (4.5-11.0) K/uL RBC (3.30-5.50) M/uL Hgb (12.0-15.0) g/dL Hct (36.0-48.0) % MCV (80-98) fL MCH (27-31) pg MCHC (32-36) % Plt Count (150-400) K/uL Neut % (Auto) (36-66) % Lymph % (Auto) (24-44) % [place] % (Auto) (2-6) % Eos % (Auto) (2-4) % Baso % (Auto) (0-1) % APTT 58.4 H (27.0-36.0) sec Sodium (140-148) mmol/L Potassium (3.6-5.2) mmol/L Chloride (100-108) mmol/L Carbon Dioxide (21-32) mmol/L Anion Gap (5.0-14.0) mmol/L BUN (7-18) mg/dL Creatinine (0.6-1.0) mg/dL Est Cr Clr Drug Dosing mL/min Estimated GFR (MDRD) (>60) Glucose (74-106) mg/dL POC Glucose 128 H 174 H (74-106) mg/dL Calcium (8.5-10.1) mg/dL Total Bilirubin (0.2-1.0) mg/dL AST (15-37) U/L ALT (12-78) U/L Alkaline Phosphatase (46-116) U/L Total Protein (6.4-8.2) g/dL Albumin (3.4-5.0) g/dL Globulin (2.3-3.5) g/dL Albumin/Globulin Ratio (1.2-2.2) 06/08/20 06/08/20 06/08/20 Range/Units 17:28 17:32 18:00 WBC (4.5-11.0) K/uL RBC (3.30-5.50) M/uL Hgb (12.0-15.0) g/dL Hct (36.0-48.0) % MCV (80-98) fL MCH (27-31) pg MCHC (32-36) % Plt Count (150-400) K/uL Neut % (Auto) (36-66) % Lymph % (Auto) (24-44) % [place] % (Auto) (2-6) % Eos % (Auto) (2-4) % Baso % (Auto) (0-1) % APTT 49.4 H (27.0-36.0) sec Sodium (140-148) mmol/L Potassium (3.6-5.2) mmol/L Chloride (100-108) mmol/L Carbon Dioxide (21-32) mmol/L Anion Gap (5.0-14.0) mmol/L BUN (7-18) mg/dL Creatinine (0.6-1.0) mg/dL Est Cr Clr Drug Dosing mL/min Estimated GFR (MDRD) (>60) Glucose (74-106) mg/dL POC Glucose 274 H Cancelled (74-106) mg/dL Calcium (8.5-10.1) mg/dL Total Bilirubin (0.2-1.0) mg/dL AST (15-37) U/L ALT (12-78) U/L Alkaline Phosphatase (46-116) U/L Total Protein (6.4-8.2) g/dL Albumin (3.4-5.0) g/dL Globulin (2.3-3.5) g/dL Albumin/Globulin Ratio (1.2-2.2) 06/08/20 06/08/20 06/09/20 Range/Units 20:54 21:00 00:00 WBC (4.5-11.0) K/uL RBC (3.30-5.50) M/uL Hgb (12.0-15.0) g/dL Hct (36.0-48.0) % MCV (80-98) fL MCH (27-31) pg MCHC (32-36) % Plt Count (150-400) K/uL Neut % (Auto) (36-66) % Lymph % (Auto) (24-44) % [place] % (Auto) (2-6) % Eos % (Auto) (2-4) % Baso % (Auto) (0-1) % APTT 51.8 H (27.0-36.0) sec Sodium (140-148) mmol/L Potassium (3.6-5.2) mmol/L Chloride (100-108) mmol/L Carbon Dioxide (21-32) mmol/L Anion Gap (5.0-14.0) mmol/L BUN (7-18) mg/dL Creatinine (0.6-1.0) mg/dL Est Cr Clr Drug Dosing mL/min Estimated GFR (MDRD) (>60) Glucose (74-106) mg/dL POC Glucose 292 H Cancelled (74-106) mg/dL Calcium (8.5-10.1) mg/dL Total Bilirubin (0.2-1.0) mg/dL AST (15-37) U/L ALT (12-78) U/L Alkaline Phosphatase (46-116) U/L Total Protein (6.4-8.2) g/dL Albumin (3.4-5.0) g/dL Globulin (2.3-3.5) g/dL Albumin/Globulin Ratio (1.2-2.2) 06/09/20 06/09/20 06/09/20 Range/Units 05:57 05:57 05:57 WBC 8.7 (4.5-11.0) K/uL RBC 3.66 (3.30-5.50) M/uL Hgb 11.1 L D (12.0-15.0) g/dL Hct 34.5 L (36.0-48.0) % MCV 94 (80-98) fL MCH 30 (27-31) pg MCHC 32 (32-36) % Plt Count 212 (150-400) K/uL Neut % (Auto) 64 (36-66) % Lymph % (Auto) 18 L (24-44) % [place] % (Auto) 14 H (2-6) % Eos % (Auto) 4 (2-4) % Baso % (Auto) 0 (0-1) % APTT 51.6 H (27.0-36.0) sec Sodium 145 (140-148) mmol/L Potassium 4.1 (3.6-5.2) mmol/L Chloride 109 H (100-108) mmol/L Carbon Dioxide 25 (21-32) mmol/L Anion Gap 15.1 H (5.0-14.0) mmol/L BUN 36 H (7-18) mg/dL Creatinine 1.6 H (0.6-1.0) mg/dL Est Cr Clr Drug Dosing 21.44 mL/min Estimated GFR (MDRD) 31 L (>60) Glucose 132 H (74-106) mg/dL POC Glucose (74-106) mg/dL Calcium 9.7 (8.5-10.1) mg/dL Total Bilirubin 0.4 (0.2-1.0) mg/dL AST 12 L (15-37) U/L ALT 20 (12-78) U/L Alkaline Phosphatase 75 (46-116) U/L Total Protein 6.3 L (6.4-8.2) g/dL Albumin 2.9 L (3.4-5.0) g/dL Globulin 3.4 (2.3-3.5) g/dL Albumin/Globulin Ratio 0.9 L (1.2-2.2) 06/09/20 Range/Units 07:08 WBC (4.5-11.0) K/uL RBC (3.30-5.50) M/uL Hgb (12.0-15.0) g/dL Hct (36.0-48.0) % MCV (80-98) fL MCH (27-31) pg MCHC (32-36) % Plt Count (150-400) K/uL Neut % (Auto) (36-66) % Lymph % (Auto) (24-44) % [place] % (Auto) (2-6) % Eos % (Auto) (2-4) % Baso % (Auto) (0-1) % APTT (27.0-36.0) sec Sodium (140-148) mmol/L Potassium (3.6-5.2) mmol/L Chloride (100-108) mmol/L Carbon Dioxide (21-32) mmol/L Anion Gap (5.0-14.0) mmol/L BUN (7-18) mg/dL Creatinine (0.6-1.0) mg/dL Est Cr Clr Drug Dosing mL/min Estimated GFR (MDRD) (>60) Glucose (74-106) mg/dL POC Glucose 124 H (74-106) mg/dL Calcium (8.5-10.1) mg/dL Total Bilirubin (0.2-1.0) mg/dL AST (15-37) U/L ALT (12-78) U/L Alkaline Phosphatase (46-116) U/L Total Protein (6.4-8.2) g/dL Albumin (3.4-5.0) g/dL Globulin (2.3-3.5) g/dL Albumin/Globulin Ratio (1.2-2.2) Result Diagrams: 06/09/20 05:57 06/09/20 05:57 Sepsis Event Note - Evaluation Sepsis Screening Result: No Definite Risk - Focused Exam Vital Signs: Vital Signs Temp Pulse Pulse Resp BP BP Pulse Ox 06/09/20 08:42 96 06/09/20 08:38 43 L 135/67 06/09/20 08:37 135/67 06/09/20 07:10 98.1 F 46 L 16 135/67 93 L 06/09/20 05:21 96 06/09/20 04:42 96 06/09/20 03:00 96 06/09/20 02:55 98.2 F 91 18 127/30 L 95 06/09/20 02:00 94 L 06/09/20 01:16 96 06/09/20 01:00 99 06/08/20 23:47 98 F 46 L 15 114/47 L 95 - Problem List Review Problem List Initiated/Reviewed/Updated: Yes - My Orders Last 24 Hours: My Active Orders 06/08/20 10:49 Consult to Occupational Therapy [OT Evaluation and Treatment] [CONS] Routine 06/08/20 17:42 Alum Hydrox/Mag Hydrox/Simeth [Mag-Al Plus] 30 ml PO Q4H PRN 06/08/20 21:00 Blood Glucose Check, Bedside [RC] QIDACANDBED 06/09/20 00:00 Overnight Pulse Oximetry [RC] Click to Edit 06/09/20 07:30 Pantoprazole [ProTONIX] 40 mg PO ACBREAKFAST 06/09/20 08:52 Peripheral IV Discontinue [OM.PC] Routine 06/09/20 09:00 Aspirin [Halfprin] 81 mg PO DAILY 06/09/20 11:30 GLUCOSE POC LAB TO COLLECT JPM [POC] QIDACANDBED 06/09/20 16:30 GLUCOSE POC LAB TO COLLECT JPM [POC] QIDACANDBED 06/09/20 21:00 GLUCOSE POC LAB TO COLLECT JPM [POC] QIDACANDBED 06/10/20 07:30 GLUCOSE POC LAB TO COLLECT JPM [POC] QIDACANDBED 06/10/20 11:30 GLUCOSE POC LAB TO COLLECT JPM [POC] QIDACANDBED 06/10/20 16:30 GLUCOSE POC LAB TO COLLECT JPM [POC] QIDACANDBED 06/10/20 21:00 GLUCOSE POC LAB TO COLLECT JPM [POC] QIDACANDBED 06/11/20 07:30 GLUCOSE POC LAB TO COLLECT JPM [POC] QIDACANDBED 06/11/20 11:30 GLUCOSE POC LAB TO COLLECT JPM [POC] QIDACANDBED 06/11/20 16:30 GLUCOSE POC LAB TO COLLECT JPM [POC] QIDACANDBED 06/11/20 21:00 GLUCOSE POC LAB TO COLLECT JPM [POC] QIDACANDBED 06/12/20 07:30 GLUCOSE POC LAB TO COLLECT JPM [POC] QIDACANDBED 06/12/20 11:30 GLUCOSE POC LAB TO COLLECT JPM [POC] QIDACANDBED 06/12/20 16:30 GLUCOSE POC LAB TO COLLECT JPM [POC] QIDACANDBED 06/12/20 21:00 GLUCOSE POC LAB TO COLLECT JPM [POC] QIDACANDBED 06/13/20 07:30 GLUCOSE POC LAB TO COLLECT JPM [POC] QIDACANDBED 06/13/20 11:30 GLUCOSE POC LAB TO COLLECT JPM [POC] QIDACANDBED 06/13/20 16:30 GLUCOSE POC LAB TO COLLECT JPM [POC] QIDACANDBED - Plan Plan:: Assessment/Plan: #1. CVA: Weakness right side with weakness very minimal speech problem. Her heart is regular at the present time, the PVCs are gone. #2. DM II: stable presently. #3. HTN: Stable.. EF is >50%. her blood pressure 130s but her heart rate is slow. Mostly in the high 40s to low 50s. #4. HLD: Continue with meds. #5. CRF: Monitor #6. ASHD: Stable #7. S/P Ca of left breast with mastectomy: I have stopped the heparin and will have her take aspirin 81 mg daily. She is scheduled to have a loop recorder put in Friday to see if we should be on heparin. If she does have atrial fibrillation. I will discharge her home today.
--- NOTE | 2020-06-09 11:20 | PCM.DCSUM1 ---
Discharge Summary - Hospital Course HPI Initial Comments: She was admitted after having slurred speech about 3:00 in the morning and he came to the emergency room and I saw her about 8:00. Her speech is improved dramatically and appeared to be more as a TIA since it was clearing. CT was done of the head which was unremarkable. The CT did not show any evidence of a CVA. Diagnosis: Stroke: Yes Modified Blackford Scale: No Signif.Disability Despite Sympt.Able to Carry Out Usual Act./Duties Modified Nan Scale Score: 1 - Discharge Data Discharge Date: 06/09/20 Discharge Disposition: Home, Self-Care 01 Condition: Fair - Referral to Home Health Primary Care Physician: Raf Walker Sr, MD - Patient Summary/Data Consults: Consultations 06/08/20 08:57 Consult to Physical Therapy [PT Evaluation and Treatment] [CONS] Routine Please Evaluate and Treat. PT Reason for Consult: right sided weakness CVA Pending Discharge: Yes Discharge Disposition: Home This query below is only for informational purposes and is not editable. Admission Diagnosis/Problem: CVA, Cerebrovascular accident 06/08/20 10:49 Consult to Occupational Therapy [OT Evaluation and Treatment] [CONS] Routine Please Evaluate and Treat. OT Reason for Consult: Strengthening Pending Discharge: Yes Discharge Disposition: Home This query below is only for informational purposes and is not editable. Admission Diagnosis/Problem: CVA, Cerebrovascular accident Hospital Course: after admission, it appeared to be more like a TIA, but she was in no condition to go home. He did do an MRI which showed a possible lesion one was done with contrast, then which did not show any cancer, but there was evidence of a cerebrovascular accident in the lower bette area. She was monitored and had bigeminal PACs. Her heart also went down into the high 30s for a very short period of time. While in the hospital her medicine was changed and the day of discharge, her heart is mostly regular. She did have physical therapy and they felt that she was medically stable to go home, but would need home care. She is being discharged in stable condition but to have a loop recorder. Heparin was given and this was eventually DC'd and placed on antiplatelet therapy. She may be a candidate for a blood thinner, but we'll need to document atrial fibrillation first. - Discharge Plan Home Medications: Home Meds Calcium Carbonate/Vitamin D3 [Calcium 600 + Vit D Tablet] 1 each PO .THREETIMESWEEKLY 10/11/16 [History] Insulin Glarg,Human.Rec.Analog [Lantus Solostar] 20 unit SQ BID 10/11/16 [History] Lovastatin 40 mg PO BEDTIME 10/11/16 [History] Multivitamin with Minerals [Multivitamins with Minerals] 1 each PO DAILY 10/11/16 [History] amLODIPine Besylate [Amlodipine Besylate] 10 mg PO DAILY 10/11/16 [History] Insulin Aspart [Novolog Flexpen] 12 - 20 unit SQ DAILY 07/04/17 [History] Losartan Potassium 100 mg PO DAILY 07/04/17 [History] Acetaminophen [Tylenol] 650 mg PO Q6H PRN 07/28/17 [History] Triamcinolone Acetonide [Triamcinolone Acetonide 0.5% Oint] 1 applic TOP BID 11/16/18 [History] Cholecalciferol (Vitamin D3) [Vitamin D] 1,000 unit PO DAILY 10/13/19 [History] Aspirin [Halfprin] 81 mg PO DAILY tab.ec 06/09/20 [Rx] Insulin Lispro [Humalog] 0 unit SUBCUT QID PRN pen 06/09/20 [Rx] carvediloL [Coreg] 3.125 mg PO BID tablet 06/09/20 [Rx] Patient Handouts: Hospital Discharge After a Stroke Referrals: Raf Walker Sr, MD [Primary Care Provider] - 06/12/20 12:00 pm (Heart monitor placed) - Discharge Summary/Plan Comment DC Time >30 min.: Yes Discharge Summary/Plan Comment: Assessment/Plan: #1. CVA: Weakness right side with weakness very minimal speech problem. Her heart is regular at the present time, the PVCs are gone. #2. DM II: stable presently. #3. HTN: Stable.. EF is >50%. her blood pressure 130s but her heart rate is slow. Mostly in the high 40s to low 50s. #4. HLD: Continue with meds. #5. CRF: Monitor #6. ASHD: Stable #7. S/P Ca of left breast with mastectomy: I have stopped the heparin and will have her take aspirin 81 mg daily. She is scheduled to have a loop recorder put in Friday to see if we should be on heparin. If she does have atrial fibrillation. I will discharge her home today. - Patient Data Vitals - Most Recent: Last Vital Signs Temp 98.1 F 06/09/20 07:10 Pulse 43 L 06/09/20 08:38 Resp 16 06/09/20 07:10 BP 135/67 06/09/20 08:38 Pulse Ox 96 06/09/20 08:42 Weight - Most Recent: 130 lb 3.2 oz I&O - Last 24 hours: Intake & Output 06/08/20 06/09/20 06/09/20 22:59 06:59 14:59 Intake Total 1252 Output Total 300 Balance -300 1252 Lab Results - Last 24 hrs: Laboratory Results - last 24 hr 06/08/20 06/08/20 06/08/20 Range/Units 08:17 11:41 12:00 WBC (4.5-11.0) K/uL RBC (3.30-5.50) M/uL Hgb (12.0-15.0) g/dL Hct (36.0-48.0) % MCV (80-98) fL MCH (27-31) pg MCHC (32-36) % Plt Count (150-400) K/uL Neut % (Auto) (36-66) % Lymph % (Auto) (24-44) % [place] % (Auto) (2-6) % Eos % (Auto) (2-4) % Baso % (Auto) (0-1) % APTT 58.4 H (27.0-36.0) sec Sodium (140-148) mmol/L Potassium (3.6-5.2) mmol/L Chloride (100-108) mmol/L Carbon Dioxide (21-32) mmol/L Anion Gap (5.0-14.0) mmol/L BUN (7-18) mg/dL Creatinine (0.6-1.0) mg/dL Est Cr Clr Drug Dosing mL/min Estimated GFR (MDRD) (>60) Glucose (74-106) mg/dL POC Glucose 128 H 174 H (74-106) mg/dL Calcium (8.5-10.1) mg/dL Total Bilirubin (0.2-1.0) mg/dL AST (15-37) U/L ALT (12-78) U/L Alkaline Phosphatase (46-116) U/L Total Protein (6.4-8.2) g/dL Albumin (3.4-5.0) g/dL Globulin (2.3-3.5) g/dL Albumin/Globulin Ratio (1.2-2.2) 06/08/20 06/08/20 06/08/20 Range/Units 17:28 17:32 18:00 WBC (4.5-11.0) K/uL RBC (3.30-5.50) M/uL Hgb (12.0-15.0) g/dL Hct (36.0-48.0) % MCV (80-98) fL MCH (27-31) pg MCHC (32-36) % Plt Count (150-400) K/uL Neut % (Auto) (36-66) % Lymph % (Auto) (24-44) % [place] % (Auto) (2-6) % Eos % (Auto) (2-4) % Baso % (Auto) (0-1) % APTT 49.4 H (27.0-36.0) sec Sodium (140-148) mmol/L Potassium (3.6-5.2) mmol/L Chloride (100-108) mmol/L Carbon Dioxide (21-32) mmol/L Anion Gap (5.0-14.0) mmol/L BUN (7-18) mg/dL Creatinine (0.6-1.0) mg/dL Est Cr Clr Drug Dosing mL/min Estimated GFR (MDRD) (>60) Glucose (74-106) mg/dL POC Glucose 274 H Cancelled (74-106) mg/dL Calcium (8.5-10.1) mg/dL Total Bilirubin (0.2-1.0) mg/dL AST (15-37) U/L ALT (12-78) U/L Alkaline Phosphatase (46-116) U/L Total Protein (6.4-8.2) g/dL Albumin (3.4-5.0) g/dL Globulin (2.3-3.5) g/dL Albumin/Globulin Ratio (1.2-2.2) 06/08/20 06/08/20 06/09/20 Range/Units 20:54 21:00 00:00 WBC (4.5-11.0) K/uL RBC (3.30-5.50) M/uL Hgb (12.0-15.0) g/dL Hct (36.0-48.0) % MCV (80-98) fL MCH (27-31) pg MCHC (32-36) % Plt Count (150-400) K/uL Neut % (Auto) (36-66) % Lymph % (Auto) (24-44) % [place] % (Auto) (2-6) % Eos % (Auto) (2-4) % Baso % (Auto) (0-1) % APTT 51.8 H (27.0-36.0) sec Sodium (140-148) mmol/L Potassium (3.6-5.2) mmol/L Chloride (100-108) mmol/L Carbon Dioxide (21-32) mmol/L Anion Gap (5.0-14.0) mmol/L BUN (7-18) mg/dL Creatinine (0.6-1.0) mg/dL Est Cr Clr Drug Dosing mL/min Estimated GFR (MDRD) (>60) Glucose (74-106) mg/dL POC Glucose 292 H Cancelled (74-106) mg/dL Calcium (8.5-10.1) mg/dL Total Bilirubin (0.2-1.0) mg/dL AST (15-37) U/L ALT (12-78) U/L Alkaline Phosphatase (46-116) U/L Total Protein (6.4-8.2) g/dL Albumin (3.4-5.0) g/dL Globulin (2.3-3.5) g/dL Albumin/Globulin Ratio (1.2-2.2) 06/09/20 06/09/20 06/09/20 Range/Units 05:57 05:57 05:57 WBC 8.7 (4.5-11.0) K/uL RBC 3.66 (3.30-5.50) M/uL Hgb 11.1 L D (12.0-15.0) g/dL Hct 34.5 L (36.0-48.0) % MCV 94 (80-98) fL MCH 30 (27-31) pg MCHC 32 (32-36) % Plt Count 212 (150-400) K/uL Neut % (Auto) 64 (36-66) % Lymph % (Auto) 18 L (24-44) % [place] % (Auto) 14 H (2-6) % Eos % (Auto) 4 (2-4) % Baso % (Auto) 0 (0-1) % APTT 51.6 H (27.0-36.0) sec Sodium 145 (140-148) mmol/L Potassium 4.1 (3.6-5.2) mmol/L Chloride 109 H (100-108) mmol/L Carbon Dioxide 25 (21-32) mmol/L Anion Gap 15.1 H (5.0-14.0) mmol/L BUN 36 H (7-18) mg/dL Creatinine 1.6 H (0.6-1.0) mg/dL Est Cr Clr Drug Dosing 21.44 mL/min Estimated GFR (MDRD) 31 L (>60) Glucose 132 H (74-106) mg/dL POC Glucose (74-106) mg/dL Calcium 9.7 (8.5-10.1) mg/dL Total Bilirubin 0.4 (0.2-1.0) mg/dL AST 12 L (15-37) U/L ALT 20 (12-78) U/L Alkaline Phosphatase 75 (46-116) U/L Total Protein 6.3 L (6.4-8.2) g/dL Albumin 2.9 L (3.4-5.0) g/dL Globulin 3.4 (2.3-3.5) g/dL Albumin/Globulin Ratio 0.9 L (1.2-2.2) 06/09/20 06/09/20 Range/Units 07:08 11:07 WBC (4.5-11.0) K/uL RBC (3.30-5.50) M/uL Hgb (12.0-15.0) g/dL Hct (36.0-48.0) % MCV (80-98) fL MCH (27-31) pg MCHC (32-36) % Plt Count (150-400) K/uL Neut % (Auto) (36-66) % Lymph % (Auto) (24-44) % [place] % (Auto) (2-6) % Eos % (Auto) (2-4) % Baso % (Auto) (0-1) % APTT (27.0-36.0) sec Sodium (140-148) mmol/L Potassium (3.6-5.2) mmol/L Chloride (100-108) mmol/L Carbon Dioxide (21-32) mmol/L Anion Gap (5.0-14.0) mmol/L BUN (7-18) mg/dL Creatinine (0.6-1.0) mg/dL Est Cr Clr Drug Dosing mL/min Estimated GFR (MDRD) (>60) Glucose (74-106) mg/dL POC Glucose 124 H 200 H (74-106) mg/dL Calcium (8.5-10.1) mg/dL Total Bilirubin (0.2-1.0) mg/dL AST (15-37) U/L ALT (12-78) U/L Alkaline Phosphatase (46-116) U/L Total Protein (6.4-8.2) g/dL Albumin (3.4-5.0) g/dL Globulin (2.3-3.5) g/dL Albumin/Globulin Ratio (1.2-2.2) Med Orders - Current: Current Medications Acetaminophen (Acetaminophen 325 Mg Tab) 650 mg PO Q6H PRN PRN Reason: PAIN Al Hydroxide/Mg Hydroxide (Aluminum Hydroxide/Magnesium Hydroxide/Simethicone Susp 30 Ml Cup) 30 ml PO Q4H PRN PRN Reason: Heartburn Last Admin: 06/08/20 17:54 Dose: 30 ml Documented by: Amlodipine Besylate (Amlodipine 5 Mg Tab) 10 mg PO DAILY [facility] Last Admin: 06/09/20 08:37 Dose: 10 mg Documented by: Aspirin (Aspirin 81 Mg Tab.Ec) 81 mg PO DAILY [facility] Last Admin: 06/09/20 08:37 Dose: 81 mg Documented by: Calcium Carbonate (Calcium Carbonate/Vitamin D3 1500 Mg-400 Units Tab) 1 tab PO MoWeFr@0900 [facility] Last Admin: 06/09/20 08:37 Dose: 1 tab Documented by: Carvedilol (Carvedilol 3.125 Mg Tab) 3.125 mg PO BID [facility] Last Admin: 06/09/20 08:38 Dose: 3.125 mg Documented by: Cholecalciferol (Cholecalciferol (Vitamin D3) 25 Mcg Tab) 25 mcg PO DAILY [facility] Last Admin: 06/09/20 08:38 Dose: 25 mcg Documented by: Dextrose/Water (50% Dextrose In Water 50 Ml Syringe) 50 ml IVPUSH ASDIRECTED PRN PRN Reason: Hypoglycemia Glucagon (Glucagon,Human Recombinant 1 Mg Vial) 1 mg IM ASDIRECTED PRN PRN Reason: Hypoglycemia Insulin Glargine (Insulin Glargine,Human Rec. Analog 100 Units/Ml 3 Ml Pen) 20 units SUBCUT BID [facility] Last Admin: 06/09/20 08:40 Dose: 20 units Documented by: Insulin Human Lispro (Insulin Lispro 100 Unit/Ml 3 Ml Kwikpen) 0 unit SUBCUT QID PRN; Protocol PRN Reason: MEDIUM CORRECTIONAL DOSING Last Admin: 06/09/20 08:40 Dose: 1 units Documented by: Losartan Potassium (Losartan 50 Mg Tab) 100 mg PO DAILY [facility] Last Admin: 06/09/20 08:37 Dose: 100 mg Documented by: Lovastatin (Lovastatin 20 Mg Tab) 40 mg PO BEDTIME [facility] Last Admin: 06/08/20 21:33 Dose: 40 mg Documented by: Multivitamins/Minerals (Multivitamins With Iron/Calcium/Folic Acid/Minerals Tab) 1 tab PO DAILY [facility] Last Admin: 06/09/20 08:37 Dose: 1 tab Documented by: Pantoprazole Sodium (Pantoprazole 40 Mg Tab.Cr) 40 mg PO ACBREAKFAST [facility] Last Admin: 06/09/20 07:35 Dose: 40 mg Documented by: Triamcinolone Acetonide (Triamcinolone Acetonide 0.1% Oint 15 Gm Tube) 0 gm TOP BID [facility] Last Admin: 06/09/20 08:38 Dose: Not Given Documented by: Discontinued Medications Gadoteridol (Gadoteridol 279.3 Mg/Ml 15 Ml Sdv) 15 ml IV .A DIRECTED [facility] Last Admin: 06/07/20 14:05 Dose: 15 ml Documented by: Heparin Sodium (Porcine) (Heparin Sodium 5,000 Units/Ml Vial) 4,700 units IVPUSH .BOLUS ONE Stop: 06/06/20 14:46 Last Admin: 06/06/20 15:20 Dose: 4,700 units Documented by: Heparin Sodium (Porcine) (Heparin Sodium 5,000 Units/Ml Vial) 1,170 units IVPUSH .BOLUS ONE Stop: 06/06/20 22:04 Last Admin: 06/06/20 22:13 Dose: 1,170 units Documented by: Heparin Sodium (Porcine) (Heparin Sodium 5,000 Units/Ml Vial) 1,170 units IVPUSH .BOLUS ONE Stop: 06/07/20 17:16 Last Admin: 06/07/20 17:30 Dose: 1,170 units Documented by: Heparin Sodium/Dextrose (Heparin 25,000 Units In D5w 500 Ml) 25,000 units in 500 mls @ 21.065 mls/hr IV TITRATE NAA; Protocol Last Admin: 06/09/20 00:07 Dose: 15 units/kg/hr, 17.554 mls/hr Documented by: Metoprolol Tartrate (Metoprolol Tartrate 50 Mg Tab) 100 mg PO DAILY [facility]
[2020-06-09 19:11] LABS: CK-BB 0 % (0); CK-MB 0 % (0-3); CK-MM 100 % (97-100); MACRO TYPE 1 0 % (Not Observed); MACRO TYPE 2 0 % (Not Observed)
== END 2020-06-09 13:00 | disposition home or self-care (01) | DRG 65 ==
LOC: JP.ED 05:02 → JP.ICU 08:44 → JP.MS 06-08 16:15
PROVIDERS: ADMIT Internal Medicine; ATTEND Internal Medicine
DX: I63.9 Cerebral infarction, unspecified (principal); G81.91 Hemiplegia, unspecified affecting right dominant side; R53.1 Weakness; E78.5 Hyperlipidemia, unspecified; R47.81 Slurred speech; R26.89 Other abnormalities of gait and mobility; I25.10 Atherosclerotic heart disease of native coronary artery without angina pectoris; I12.9 Hypertensive chronic kidney disease with stage 1 through stage 4 chronic kidney disease, or unspecified chronic kidney disease; N18.9 Chronic kidney disease, unspecified; K21.9 Gastro-esophageal reflux disease without esophagitis; E11.22 Type 2 diabetes mellitus with diabetic chronic kidney disease; F32.9 Major depressive disorder, single episode, unspecified; D63.1 Anemia in chronic kidney disease; Z98.42 Cataract extraction status, left eye; Z98.41 Cataract extraction status, right eye; Z90.49 Acquired absence of other specified parts of digestive tract; E11.40 Type 2 diabetes mellitus with diabetic neuropathy, unspecified; M19.90 Unspecified osteoarthritis, unspecified site; Z90.12 Acquired absence of left breast and nipple; E78.00 Pure hypercholesterolemia, unspecified; Z87.442 Personal history of urinary calculi; Z86.010 Personal history of colon polyps; Z90.89 Acquired absence of other organs; Z98.890 Other specified postprocedural states; Z95.5 Presence of coronary angioplasty implant and graft; H54.7 Unspecified visual loss; F31.9 Bipolar disorder, unspecified; F41.9 Anxiety disorder, unspecified; D64.9 Anemia, unspecified; Z85.3 Personal history of malignant neoplasm of breast; Z85.820 Personal history of malignant melanoma of skin; Z79.4 Long term (current) use of insulin; Z79.899 Other long term (current) drug therapy; W19.XXXA Unspecified fall, initial encounter
CPT/HCPCS: 36415; 70450; 70551; 70551-26; 70552; 70552-26; 80053; 81001; 82550; 82552; 82947; 84484; 85025; 85610; 85730; 93005; 93306; 94762; 97110-GO; 97162-GP; 97166-GO; 97530-GP; 97535-GO; 97535-GP; A9270-GY; A9579; J1644; J1815; J1815-GY